=== PATIENT | female | born 1990 | race Caucasian/White ===

== ENCOUNTER 2017-07-04 10:31 | Inpatient (IN) | payer MEDICARE, MEDICAID ==
--- NOTE | 2017-07-04 11:01 | ED ---
General Adult HPI - General Chief complaint: Psychiatric Symptoms Stated complaint: mental health Time Seen by Provider: 07/04/17 10:40 Source: patient, RN notes reviewed Mode of arrival: ambulatory Limitations: no limitations - History of Present Illness Initial comments: 27-year-old female presents for evaluation of depression and suicidal thoughts. Patient was sent by her psychiatrist for possible admission. She has had ongoing thoughts of harming herself for some time over these have worsened recently. She has past medical history of depression and panic attacks. She has been admitted for psychiatric reasons approximately 10 years ago. She has no specific plan. She did some superficial cutting to her right upper extremity. No other suicide attempt. Patient is accompanied by her mother. - Related Data Home Medications Medication Instructions Recorded Confirmed Dextroamphetamine/Amphetamine 30 mg PO DAILY 07/04/17 07/04/17 [Adderall Xr] LORazepam [Ativan] 1 mg PO TID 07/04/17 07/04/17 OXcarbazepine [Trileptal] 300 mg PO BID 07/04/17 07/04/17 Allergies Allergy/AdvReac Type Severity Reaction Status Date / Time lamotrigine [From Lamictal] Allergy Unknown Verified 07/04/17 10:53 topiramate [From Topamax] Allergy Anaphylaxis Verified 07/04/17 10:53 Review of Systems ROS Statement: Those systems with pertinent positive or pertinent negative responses have been documented in the HPI. ROS Other: All systems not noted in ROS Statement are negative. Past Medical History Additional Past Medical History / Comment(s): stomach ulcer History of Any Multi-Drug Resistant Organisms: None Reported Past Surgical History: Tonsillectomy Additional Past Surgical History / Comment(s): endoscopy Past Psychological History: Anxiety, Depression, Panic Disorder Smoking Status: Current every day smoker Past Alcohol Use History: Occasional Past Drug Use History: Marijuana General Exam Limitations: no limitations General appearance: alert, in no apparent distress Head exam: Present: atraumatic, normocephalic Eye exam: Present: normal appearance, PERRL, EOMI ENT exam: Present: normal exam Neck exam: Present: normal inspection. Absent: tenderness, meningismus Respiratory exam: Present: normal lung sounds bilaterally. Absent: respiratory distress, wheezes Cardiovascular Exam: Present: regular rate, normal rhythm GI/Abdominal exam: Present: soft. Absent: distended, tenderness, guarding Extremities exam: Present: full ROM, other (Superficial abrasion to the dorsal surface of the right forearm, no laceration). Absent: tenderness Back exam: Present: normal inspection Neurological exam: Present: alert, oriented X3, CN II-XII intact. Absent: motor sensory deficit Psychiatric exam: Present: depressed, suicidal ideation Skin exam: Present: warm, dry. Absent: cyanosis, diaphoretic Course Vital Signs 07/04/17 10:35 Temperature 98.1 F Pulse Rate 113 H Respiratory 20 Rate Blood Pressure 126/89 O2 Sat by Pulse 100 Oximetry Medical Decision Making - Medical Decision Making 37-year-old female presenting with suicidal ideation or depression. She is evaluated by [facility] in the emergency department. They do recommend inpatient treatment. Patient signed herself in. - Lab Data Lab Results 07/04/17 07/04/17 Range/Units 11:00 11:00 Urine HCG, Qual Not Detected (Not Detectd) Urine Opiates Screen Not Detected (NotDetected) Ur Oxycodone Screen Not Detected (NotDetected) Urine Methadone Screen Not Detected (NotDetected) Ur Propoxyphene Screen Not Detected (NotDetected) Ur Barbiturates Screen Not Detected (NotDetected) U Tricyclic Antidepress Not Detected (NotDetected) Ur Phencyclidine Scrn Not Detected (NotDetected) Ur Amphetamines Screen Detected H (NotDetected) U Methamphetamines Scrn Not Detected (NotDetected) U Benzodiazepines Scrn Detected H (NotDetected) Urine Cocaine Screen Not Detected (NotDetected) U Marijuana (THC) Screen Detected H (NotDetected) Disposition Clinical Impression: Depression, Suicidal ideation Disposition: ADMITTED IP TO THIS [facility] Condition: Stable Referrals: Harjinder Mcdonald MD [Primary Care Provider] - 1-2 days Decision to Admit Reason: Admit from EC Decision Date: 07/04/17
[2017-07-04 11:22] LABS: Amphetamine Screen,Urine Detected (NotDetected); Barbiturate Screen,Urine Not Detected (NotDetected); Benzodiazepines Screen,Urine Detected (NotDetected); Cocaine Screen,Urine Not Detected (NotDetected); Methadone Screen, Urine Not Detected (NotDetected); Opiate Screen,Urine Not Detected (NotDetected); Oxycodone Screen, Urine Not Detected (NotDetected); Phencyclidine Screen,Urine Not Detected (NotDetected); Tricyclic Antidepressant,Urine Not Detected (NotDetected); Urn Cannabinoid Scrn Detected (NotDetected)
[2017-07-04 14:28] VITALS: BMI 30.9
[2017-07-04] MEDS ORDERED: ACETAMINOPHEN TAB 325 MG TAB PO PRN (15:23)
[2017-07-04] MEDS ORDERED: MAGNESIUM HYDROXIDE 2,400 MG/10 ML CUP PO PRN (15:23)
[2017-07-04] MEDS ORDERED: MAG HYDROX/AL HYDROX/SIMETH 30 ML CUP PO PRN (15:23)
[2017-07-04] MEDS: LORazepam 1 MG TAB PO SCH ×2 (15:37→20:24)
[2017-07-04] MEDS ORDERED: NICOTINE 21MG/24HR PATCH TRANSDERM SCH (16:15)
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
--- NOTE | 2017-07-04 19:11 | P.HPMEDMHU ---
History of Present Illness H&P Date: 07/04/17 Chief Complaint: anxiety Patient is a 27-year-old female with a past medical history of gastric ulcer, ADD, and borderline personality disorder who presented to the ER with increased anxiety and suicidal ideation. She was then admitted to the mental health unit. We are asked evaluate her for abdominal pain and vomiting. Patient seen and examined. She complains of vomiting first morning on waking every day. She also complains of stomach pain. She states that she was told she had a stomach ulcer secondary to stress about 3 years ago. She has been taking Prilosec but she tends to vomited up and doesn't absorb it. She also complains of increased burning in her chest at night associated with waking up with shortness of breath and wheezing. She states that when she wakes up she is coughing and producing sputum that is consistent with clear white or bile colored. She also states that when she throws up in the morning it looks like acid. She feels that it is likely due to stress. She is also been having intermittent tingling in the center of her back. She is not having any back pain or falls. She's not have any associated weakness. She has not been sleeping and has had a poor appetite. She is been feeling depressed and suicidal realizes she would not commit suicide due to having a 2-year-old son. She states she did not want to continue asking for her parents help to care for her son and therefore presented to the emergency department. She has no other complaints currently. She has recently increased her tobacco use. Review of Systems Pertinent positives and negatives as per HPI, remainder of 12 point review of systems is negative. Past Medical History Additional Past Medical History / Comment(s): stomach ulcer History of Any Multi-Drug Resistant Organisms: None Reported Past Surgical History: Tonsillectomy Additional Past Surgical History / Comment(s): EGD Smoking Status: Current every day smoker Past Alcohol Use History: Rare Past Drug Use History: Marijuana Additional Drug Use History / Comment(s): Lives alone with her son, not currently working, independent in activities of daily living - Past Family History Mother Additional Family Medical History / Comment(s): Hypertension, hyperparathyroidism, posttraumatic stress disorder Father Additional Family Medical History / Comment(s): being evaluated for stroke and possible palpitations Medications and Allergies Home Medications Medication Instructions Recorded Confirmed Type Dextroamphetamine/Amphetamine 30 mg PO DAILY 07/04/17 07/04/17 History [Adderall Xr] LORazepam [Ativan] 1 mg PO TID 07/04/17 07/04/17 History OXcarbazepine [Trileptal] 300 mg PO BID 07/04/17 07/04/17 History Allergies Allergy/AdvReac Type Severity Reaction Status Date / Time lamotrigine [From Lamictal] Allergy Unknown Verified 07/04/17 14:47 topiramate [From Topamax] Allergy Anaphylaxis Verified 07/04/17 14:47 Physical Exam Osteopathic Statement: *. No significant issues noted on an osteopathic structural exam other than those noted in the History and Physical/Consult. Vitals: Vital Signs Temp Pulse Pulse Resp BP BP Pulse Ox 07/04/17 15:37 93 18 139/85 07/04/17 14:18 98.2 F 103 H 20 129/82 07/04/17 13:28 98.2 F 103 H 20 129/82 07/04/17 10:35 98.1 F 113 H 20 126/89 100 Intake and Output 07/04/17 07/04/17 07/04/17 06:59 14:59 22:59 Other: Weight 81.64 kg Patient Weight 07/05/17 06:59 Weight 81.64 kg General: non toxic, no distress, appears at stated age, normal weight Derm: no unusual rashes/lesions no unusual ecchymoses, warm, dry Head: atraumatic, normocephalic, symmetric Eyes: EOMI, no lid lag, anicteric sclera, pupils equal round reactive to light ENT: Nose and ears atraumatic, no thrush, no pharyngeal erythema Neck: No thyromegaly, no cervical lymphadenopathy, trachea midline, supple Mouth: no lip lesion, mucus membranes moist Cardiovascular: S1S2 reg, no murmur, positive posterior tibial pulse bilateral, no edema, capillary refill less than 2 seconds Lungs: CTA bilateral, no rhonchi, no rales , no accessory muscle use Abdominal: soft, nontender to palpation, no guarding, no appreciable organomegaly, normal bowel sounds Ext: no gross muscle atrophy, muscle strength 5 out of 5 in all 4 extremities grossly, no contractures, Neuro: CN II-XI grossly intact, light touch intact all 4 extremities, finger to nose within normal limits, Psych: Alert, oriented, pressured speech, anxious appearing Cranial Nerve Examination - Cranial Nerves Cranial Nerve II- Optic: Intact Cranial Nerve III- Oculomotor: Intact Cranial Nerve IV- Trochlear: Intact Cranial Nerve V- Trigeminal: Intact Cranial Nerve - Abducens: Intact Cranial Nerve VII- Facial: Intact Cranial Nerve VIII- Auditory: Intact Cranial Nerve IX- Glossopharyngeal: Intact Cranial Nerve X- Vagus: Intact Cranial Nerve XI- Accessory: Intact Cranial Nerve XII- Hypoglossal: Intact Results Labs: Abnormal Lab Results - Last 24 Hours (Table) 07/04/17 Range/Units 11:00 Ur Amphetamines Screen Detected H (NotDetected) U Benzodiazepines Scrn Detected H (NotDetected) U Marijuana (THC) Screen Detected H (NotDetected) Thrombosis Risk Factor Assmnt - DVT/VTE Prophylaxis DVT/VTE Prophylaxis: Low risk, early ambulation encouraged - Choose All That Apply Any of the Below Risk Factors Present?: No Other Risk Factors: No Other congenital or acquired thrombophilia - If yes, enter type in comment: No Thrombosis Risk Factor Assessment Level: Very Low Risk Assessment and Plan Assessment: Acid reflux -Suspect this is why her shortness of breath occurs at night associated with wheezing and increased acid production -Change from omeprazole to Protonix twice daily -Tums before bed - Check back in 3-4 days for improvement, if she is discharged before then she can follow with her primary care physician to ensure improvement Borderline personality disorder with suicidal ideation -Management as per psychiatry team -Tobacco abuse -Cessation -Nicotine replacement Check baseline CBC, CMP, TSH, and hemoglobin A1c
[2017-07-04] MEDS: CALCIUM CARBONATE 500 MG CHEWABLE PO SCH (20:23)
[2017-07-04] MEDS: OXcarbazepine 300 MG TAB PO SCH (20:23)
[2017-07-04] MEDS: traZODone HCL 50 MG TAB PO SCH (20:23)
[2017-07-04] MEDS: NICOTINE POLACRILEX 2 MG GUM BUCCAL PRN (20:35)
[2017-07-05 06:43] VITALS: RESP 16
[2017-07-05 08:12] LABS: Basophils % (A) 0 %; Eosinophils # (A) 0.1 k/uL (0-0.7); Eosinophils % (A) 1 %; HCT 39.9 % (34.0-46.0); HGB 13.1 gm/dL (11.4-16.0); Lymphocytes # (A) 2.1 k/uL (1.0-4.8); Lymphocytes % (A) 25 %; MCH 28.8 pg (25.0-35.0); MCHC 32.9 g/dL (31.0-37.0); MCV 87.6 fL (80.0-100.0); Mean Platelet Volume 7.7; Monocytes # (A) 0.5 k/uL (0-1.0); Monocytes % (A) 5 %; Neutrophils # (A) 5.7 k/uL (1.3-7.7); Neutrophils % (A) 66 %; Platelet Count 187 k/uL (150-450); RBC 4.55 m/uL (3.80-5.40); RDW 13.1 % (11.5-15.5); WBC 8.6 k/uL (3.8-10.6)
[2017-07-05] MEDS: PANTOPRAZOLE 40 MG TABLET PO SCH ×2 (08:33→16:58)
[2017-07-05] MEDS: ESCITALOPRAM 10 MG TAB PO SCH (08:33)
[2017-07-05] MEDS: OXcarbazepine 300 MG TAB PO SCH ×2 (08:33→20:31)
[2017-07-05] MEDS: LORazepam 1 MG TAB PO SCH ×3 (08:34→20:31)
[2017-07-05 08:48] LABS: ALT 32 U/L (9-52); AST 14 U/L (14-36); Alkaline Phosphatase 58 U/L (38-126); Anion Gap 10 mmol/L; Blood Urea Nitrogen 12 mg/dL (7-17); Calcium 9.7 mg/dL (8.4-10.2); Carbon Dioxide 23 mmol/L (22-30); Chloride 109 mmol/L (98-107); Glucose 93 mg/dL (74-99); Potassium 4.4 mmol/L (3.5-5.1); Sodium 142 mmol/L (137-145); Total Bilirubin 0.3 mg/dL (0.2-1.3); Total Protein 6.8 g/dL (6.3-8.2)
[2017-07-05] MEDS: NICOTINE POLACRILEX 2 MG GUM BUCCAL PRN ×3 (08:57→20:43)
[2017-07-05 09:41] LABS: T4, Free (Free Thyroxine) 1.35 ng/dL (0.78-2.19)
--- NOTE | 2017-07-05 13:52 | P.PN ---
Progress Note - Text Progress Note Date: 07/05/17 Interval History: Patient is a 27-year-old female who was seen today and she reports that she slept well last evening. She states that she is not been as tearful today and is not feeling as irritable. She reports that she feels much better now that she is slept. Patient declined her Ativan this morning stating that she did not have a need for it. Patient reports no further suicidal ideation. Patient reports no side effects from the medications at this time Mental Status: Appearance/Attitude: Patient is appropriately dressed, makes good eye contact and is cooperative. Behavior: Patient does not exhibit any psychomotor agitation or retardation. Speech/Language: Patient's speech is spontaneous, normal volume and rhythm and she is coherent. Thought Process: Patient is goal-directed, no evidence of loose associations or flight of ideas. Thought Content: Patient denies auditory or visual hallucinations and no delusions or paranoid ideation were elicited. Patient states that she slept well last evening and is feeling much better today, much less irritable and states she has not had any crying spells. Patient states that she is eating well. She reports that she feels less overwhelmed and stressed. Suicidal/Homicidal Ideation: Patient denies any current suicidal or homicidal ideation. Sensorium/Cognition: Patient is alert and oriented to person, place, and time and her recent and remote memory are grossly intact. Mood/Affect: Patient's mood remains depressed and her affect is slightly blunted Insight/Judgment: Patient's insight and judgment are intact Assessment: Patient reports that she slept well with the trazodone and had no reported side effects. She states she is feeling much less irritable and less overwhelmed at this morning and is not having any suicidal ideation. She reports her crying spells have also decreased. Patient states that she has been attending groups and activities and feels better able to cope with things. Plan: Patient will continue on Trileptal 3 mg twice a day, Lexapro 10 mg in the morning and trazodone 50 mg at bedtime. Patient and I again discussed the need for her to take her Ativan as scheduled she has been taking 3 mg a day and has been on Ativan for quite some time. Will decrease patient's Ativan to 1 mg twice a day tomorrow and continue to slowly decrease her dose. Patient continues to require hospitalization to further stabilize her mood but should patient continue to improve with consider discharge in the next several days.
[2017-07-05 16:52] LABS: Hemoglobin A1C 5.1 % (4.0-6.0)
[2017-07-05] MEDS: CALCIUM CARBONATE 500 MG CHEWABLE PO SCH (20:31)
[2017-07-05] MEDS: traZODone HCL 50 MG TAB PO SCH (20:31)
[2017-07-06] MEDS: OXcarbazepine 300 MG TAB PO SCH ×2 (08:13→20:34)
[2017-07-06] MEDS: ESCITALOPRAM 10 MG TAB PO SCH (08:13)
[2017-07-06] MEDS: PANTOPRAZOLE 40 MG TABLET PO SCH ×2 (08:13→17:48)
[2017-07-06] MEDS: LORazepam 1 MG TAB PO SCH ×2 (08:14→20:34)
[2017-07-06] MEDS: NICOTINE POLACRILEX 2 MG GUM BUCCAL PRN ×2 (09:24→18:25)
--- NOTE | 2017-07-06 10:03 | P.PN ---
Progress Note - Text Progress Note Date: 07/06/17 Interval History: Patient is a 27-year-old female who was seen today and she reports that she continues to sleep well and feels much better, more rested and not as stressed. She states that she is feeling less overwhelmed and has no suicidal thoughts. She states she is not feeling as hopeless as she did on admission. She reports to speaking with her mother who took her son to his order picker/assembler and her mother was given a list of mother baby support groups. Patient reports that she is not having any side effects from the medication and feels that her mood has stabilized. She states she is not feeling as irritable. Mental Status: Appearance/Attitude: Patient was appropriately dressed, making good eye contact and was cooperative Behavior: Patient did not exhibit any psychomotor agitation or retardation. Speech/Language: Patient's speech was spontaneous and of normal volume and rhythm and she was coherent. Thought Process: Patient was goal-directed there is no evidence of loose associations or flight of ideas. Thought Content: Patient denied any auditory or visual hallucinations and no delusions or paranoid ideation were elicited. Patient reported that she has been sleeping well at night and feeling much less overwhelmed. She states she is feeling rested and has energy to do things. Patient is not feeling as irritable. Suicidal/Homicidal Ideation: Patient denied any current suicidal or homicidal ideation Sensorium/Cognition: Patient is alert and oriented to person, place, and time and her recent and remote memory are grossly intact. Mood/Affect: Patient's mood is less irritable, less depressed and her affect is appropriate Insight/Judgment: Patient's insight and judgment are intact Assessment: Patient reports that she continues to sleep well and feels rested in the morning, stating that she is no longer feeling as irritable or as overwhelmed. Patient states that she is eager to return home and reports that her mother and son are doing well. She reports no suicidal thoughts and is no longer feeling hopeless. Patient's TSH was low however repeat T4 is within normal limits. Patient has been attending groups and activities. Plan: Patient and I discussed decreasing her Ativan to 1 mg twice a day, with a plan to continue titration to get her off of the benzodiazepines. Patient continues on Trileptal 3 mg twice a day, Lexapro 10 mg and trazodone 50 mg at bedtime and reports no side effects. Patient and I also discussed the list of mother/baby groups that were given to her mother by the order picker/assembler and I encouraged her to look into this on discharge. Patient is more hopeful that she can meet other mothers in the area, improve her support group. Patient and I discussed discharge tomorrow and she was agreeable with this plan.
[2017-07-06] MEDS: CALCIUM CARBONATE 500 MG CHEWABLE PO SCH (20:32)
[2017-07-06] MEDS: traZODone HCL 50 MG TAB PO SCH (20:34)
[2017-07-07 06:42] VITALS: BP 115/62; PULSE 77; TEMP 98.6
[2017-07-07] MEDS: OXcarbazepine 300 MG TAB PO SCH (08:02)
[2017-07-07] MEDS: ESCITALOPRAM 10 MG TAB PO SCH (08:02)
[2017-07-07] MEDS: LORazepam 1 MG TAB PO SCH (08:02)
[2017-07-07] MEDS: PANTOPRAZOLE 40 MG TABLET PO SCH (08:02)
[2017-07-07] MEDS ORDERED: LORazepam 0.5 MG TAB PO SCH (09:15)
--- NOTE | 2017-07-07 09:39 | P.DS ---
Providers Date of admission: 07/04/17 13:06 Expected date of discharge: 07/07/17 Attending physician: Mikayla Figueroa MD Consults: 07/04/17 15:23 Consult Physician Routine Consulting Provider: Georgina Gilliland Consult Reason/Comments: H&P Do you want consulting provider notified?: Yes Primary care physician: [facility] Course: Discharge Diagnosis: Bipolar type II disorder, current episode depressed; history of ADHD; anxiety disorder unspecified Reason for Admission: Patient is a 27-year-old female who presented to the emergency room stating that she doesn't want to hurt herself and she doesn't want to get angry with her son and snap at him. Patient states that she has been treated for anxiety and bipolar disorder for a number of years as well as ADHD. She is followed by Dr. Yates and was begun on Trileptal 6 months ago for her anger issues. Patient is also taking Adderall 30 mg extended release every morning as well as Ativan 1 mg 3 times a day over the patient reports that she takes all 3 mg at bedtime to assist with her sleep. Patient states that she has been treated since the age of 7 for psychiatric problems. Patient states that she was diagnosed with ADHD at that time and placed on Ritalin and has been on and off it over the years and it was restarted in 2009 and she has been on Adderall extended release since that time. Patient states that she has been on multiple medications for a diagnosis of bipolar disorder made when she was in the third grade. She was on Topamax prior to the Trileptal for 3 months and states that she had every side effect imaginable and it was discontinued. Patient states that she's been on lithium in the past, Seroquel in the past and states that lithium caused weight gain and she slept too much on Seroquel. Patient states that she has episodes where she talks too much, has more impulsive behavior of stealing, increased interest in sex and seeking out men, buying things that she does not need that she's unable to endorse the need for decreased sleep with increased energy. Patient states that she does much of this to get attention. Patient states that she currently is feeling depressed and has been thinking about suicide for the last year but especially over the last month, she describes passive suicidal ideation where she thinks if she was it would be okay but states that she doesn't want to because who would take care of eie-2-kmln-old son. Patient states she has been having crying spells and has not been sleeping and feels exhausted and tired during the day. She states she is increasingly irritable and feels overwhelmed with the care of her son because she is so tired. She states that she and her 2-1/2-year-old son live alone and she is not working outside of the house and once a month her mother will watch her son so that the patient can sleep. Patient states she has been taking Adderall, Trileptal and Ativan. Patient states she has been on multiple medications in the past with little benefit states that she is also been on different combinations with what she reports little benefit and was unable to tell me what was the most effective medication for her in the past. Patient does not endorse any psychotic symptomatology, does describe feeling anxious for which she states she was using Ativan but was taking it all at night to help her sleep. Patient also has been taking Adderall states that it helps her focus she's been on it since 2009. Mental status on admission: Appearance/Attitude: Patient is dressed in a hospital gown, was tearful throughout the bulk of the interview made made good eye contact and was cooperative Behavior: Patient did not exhibit any psychomotor agitation or retardation. Speech/Language: Patient's speech was spontaneous and of normal volume and rhythm and she was coherent. Thought Process: Patient was goal-directed there is no evidence of circumstantial or tangential thought and no loose associations or flight of ideas. Thought Content: Patient denied any auditory or visual hallucinations and no paranoid or delusional ideation was elicited. Patient reports that she is feeling depressed and tired with little energy to do things. Patient states she also is easily irritated and becomes angry easily. She states that she does not want to get angry and snappy a 2-1/2-year-old son who she states is being evaluated for ADHD. Patient states that she is not sleeping at night for more than 4 hours and those 4 hours are interrupted. She states this is not due to her son. Patient states she has no energy to do things. Suicidal/Homicidal Ideation: Patient states that she has passive suicidal thoughts that if something happened to her and she she wouldn't care but then stated she has no plans or intent to act and does not want to because she wonders who would care for her son. Patient is concerned that she'll get angry and snappy at her son but states that she has never done so. Patient denied any current homicidal ideation Sensorium/Cognition: Patient is alert and oriented to person, place, and time and her recent and remote memory were grossly intact. Mood/Affect: Patient's mood is depressed and tearful and her affect is appropriate to her mood Insight/Judgment: Patient's insight and judgment are fair Hospital Course: Patient was admitted on a voluntary basis, routine observation and group and activity therapy were ordered. Patient was also ordered routine laboratory studies and a medical consultation was requested. Patient was continued on Trileptal 300 mg twice a day, Lexapro 10 mg in the morning was begun to target her depressive symptoms. Patient had been using Ativan 3 mg at bedtime for sleep and she was continued on Ativan 1 mg 3 times a day to prevent withdrawal and this was slowly decreased over the course of her hospital stay. Patient was placed on Desyrel 50 mg at bedtime to target her sleep. Patient reported improvement and she was able to sleep with the Desyrel and felt more rested, less overwhelmed and better able to cope. Patient reported that she was no longer feeling depressed and irritable and reported no suicidal thoughts. Patient reported no side effects from the medication but reported taking the Ativan during the day was making her sleepy so her dose was further decreased to Ativan 0.5 mg twice a day at the time of her discharge. Patient was attending and participating in groups and activities. She reported in phone call with the father of her son went well, stating that she remained calm and did not call him names that she has done in the past. Patient also reports that her mother was given a list of mother/baby groups by the sand cutter and the patient is going to follow-up on this. Patient felt she was ready for discharge and had no side effects from the medications. Patient's TSH was low but a T4 was within normal limits no further studies were ordered at this time patient will follow up with her primary care physician Allergies lamotrigine [From Lamictal] Allergy (Verified 07/04/17 14:47) Unknown topiramate [From Topamax] Allergy (Verified 07/04/17 14:47) Anaphylaxis Laboratory Last Values WBC 8.6 k/uL (3.8-10.6) 07/05/17 07:44 RBC 4.55 m/uL (3.80-5.40) 07/05/17 07:44 Hgb 13.1 gm/dL (11.4-16.0) 07/05/17 07:44 Hct 39.9 % (34.0-46.0) 07/05/17 07:44 MCV 87.6 fL (80.0-100.0) 07/05/17 07:44 MCH 28.8 pg (25.0-35.0) 07/05/17 07:44 MCHC 32.9 g/dL (31.0-37.0) 07/05/17 07:44 RDW 13.1 % (11.5-15.5) 07/05/17 07:44 Plt Count 187 k/uL (150-450) 07/05/17 07:44 Neutrophils % 66 % 07/05/17 07:44 Lymphocytes % 25 % 07/05/17 07:44 Monocytes % 5 % 07/05/17 07:44 Eosinophils % 1 % 07/05/17 07:44 Basophils % 0 % 07/05/17 07:44 Neutrophils # 5.7 k/uL (1.3-7.7) 07/05/17 07:44 Lymphocytes # 2.1 k/uL (1.0-4.8) 07/05/17 07:44 Monocytes # 0.5 k/uL (0-1.0) 07/05/17 07:44 Eosinophils # 0.1 k/uL (0-0.7) 07/05/17 07:44 Basophils # 0.0 k/uL (0-0.2) 07/05/17 07:44 Sodium 142 mmol/L (137-145) 07/05/17 07:44 Potassium 4.4 mmol/L (3.5-5.1) 07/05/17 07:44 Chloride 109 mmol/L (98-107) H 07/05/17 07:44 Carbon Dioxide 23 mmol/L (22-30) 07/05/17 07:44 Anion Gap 10 mmol/L 07/05/17 07:44 BUN 12 mg/dL (7-17) 07/05/17 07:44 Creatinine 0.70 mg/dL (0.52-1.04) 07/05/17 07:44 Est GFR (MDRD) Af Amer >60 (>60 ml/min/1.73 sqM) 07/05/17 07:44 Est GFR (MDRD) Non-Af >60 (>60 ml/min/1.73 sqM) 07/05/17 07:44 Glucose 93 mg/dL (74-99) 07/05/17 07:[address] Glu mg/dL 100 07/05/17 07:44 Hemoglobin A1c 5.1 % (4.0-6.0) 07/05/17 07:44 Calcium 9.7 mg/dL (8.4-10.2) 07/05/17 07:44 Total Bilirubin 0.3 mg/dL (0.2-1.3) 07/05/17 07:44 AST 14 U/L (14-36) 07/05/17 07:44 ALT 32 U/L (9-52) 07/05/17 07:44 Alkaline Phosphatase 58 U/L (38-126) 07/05/17 07:44 Total Protein 6.8 g/dL (6.3-8.2) 07/05/17 07:44 Albumin 4.0 g/dL (3.5-5.0) 07/05/17 07:44 TSH 0.267 mIU/L (0.465-4.680) L 07/05/17 07:44 Free T4 1.35 ng/dL (0.78-2.19) 07/05/17 07:44 Urine HCG, Qual Not Detected (Not Detectd) 07/04/17 11:00 Urine Opiates Screen Not Detected (NotDetected) 07/04/17 11:00 Ur Oxycodone Screen Not Detected (NotDetected) 07/04/17 11:00 Urine Methadone Screen Not Detected (NotDetected) 07/04/17 11:00 Ur Propoxyphene Screen Not Detected (NotDetected) 07/04/17 11:00 Ur Barbiturates Screen Not Detected (NotDetected) 07/04/17 11:00 U Tricyclic Antidepress Not Detected (NotDetected) 07/04/17 11:00 Ur Phencyclidine Scrn Not Detected (NotDetected) 07/04/17 11:00 Ur Amphetamines Screen Detected (NotDetected) H 07/04/17 11:00 U Methamphetamines Scrn Not Detected (NotDetected) 07/04/17 11:00 U Benzodiazepines Scrn Detected (NotDetected) H 07/04/17 11:00 Urine Cocaine Screen Not Detected (NotDetected) 07/04/17 11:00 U Marijuana (THC) Screen Detected (NotDetected) H 07/04/17 11:00 Discharge Mental Status: Appearance/Attitude: Patient is dressed in a hospital gown, makes good eye contact and is cooperative. Behavior: Patient does not exhibit any psychomotor agitation or retardation. Speech/Language: Patient's speech is spontaneous and of normal volume and rhythm and she is coherent. Thought Process: Patient is goal-directed there is no evidence of circumstantial or tangential thought and no loose associations or flight of ideas Thought Content: Patient denies any auditory or visual hallucinations and no paranoid or delusional ideation was elicited. Patient reports she is no longer feeling irritable or easily angered and states that due to [place] improving she feels rested and more motivated. Patient states her appetite is good. She reports that she feels better able to cope and no longer feels concerned that she will snap and get angry at her son. Suicidal/Homicidal Ideation: Patient denies any current suicidal or homicidal ideation. Sensorium/Cognition: Patient is alert and oriented to person, place, and time and her recent and remote memory were grossly intact. Mood/Affect: patient's mood is pleasant, not irritable or angry and her affect is appropriate Insight/Judgment: patient's insight and judgment are intact. Risk Assessment: patient's risk for self harm is low Discharge Plan: patient will return home to live with her son, she will continue on Trileptal 300 mg twice a day, Desyrel 50 mg at bedtime and Lexapro 10 mg in the morning and will continue on Ativan 0.5 mg twice a day for 4 days then decrease to Ativan 0.5 mg once a day for 4 days and then discontinue Ativan. Patient will also continue on Nicorette gum and proton ask which word begun here in the hospital. Patient will be given a prescription for Lexapro, Desyrel, Protonix in the Nicorette gum. Patient will follow-up with Dr. Yates on July 11 and at [facility] on July 12 for an intake appointment. Patient will also follow-up with her primary care physician regarding the Protonix. Patient was encouraged to follow-up with the referrals for mother/baby groups to increase her support system. Patient was encouraged to follow-up with appointments and be compliant with her medication. Patient will restart her Adderall once she has returned home. Patient was encouraged to avoid any marijuana. Patient Condition at Discharge: Stable Plan - Discharge Summary Discharge Rx Participant: No New Discharge Prescriptions: New Calcium Carbonate [Tums] 1,000 mg PO HS chew Escitalopram [Lexapro] 10 mg PO DAILY #14 tab Nicotine Polacrilex [Nicorette] 2 mg BUCCAL Q2HR PRN #20 gum PRN Reason: Nicotine Cravings Pantoprazole [Protonix] 40 mg PO AC-BID #28 tablet. traZODone HCL [Desyrel] 50 mg PO HS #14 tab Continue OXcarbazepine [Trileptal] 300 mg PO BID Dextroamphetamine/Amphetamine [Adderall Xr] 30 mg PO DAILY Changed LORazepam [Ativan] 0.5 mg PO DIRECTED #0 Discharge Medication List Dextroamphetamine/Amphetamine [Adderall Xr] 30 mg PO DAILY 07/04/17 [History] OXcarbazepine [Trileptal] 300 mg PO BID 07/04/17 [History] Calcium Carbonate [Tums] 1,000 mg PO HS chew 07/07/17 [Rx] Escitalopram [Lexapro] 10 mg PO DAILY #14 tab 07/07/17 [Rx] LORazepam [Ativan] 0.5 mg PO DIRECTED #0 07/07/17 [Rx] Nicotine Polacrilex [Nicorette] 2 mg BUCCAL Q2HR PRN #20 gum 07/07/17 [Rx] Pantoprazole [Protonix] 40 mg PO AC-BID #28 tablet. 07/07/17 [Rx] traZODone HCL [Desyrel] 50 mg PO HS #14 tab 07/07/17 [Rx] Follow up Appointment(s)/Referral(s): dr. guerita [Other] - 07/11/17 3:00 pm (Intake 07/11/17 at 3:00pm) [facility] [Outside] - 07/12/17 1:00 pm (Intake 07/12/17 at 1:00 pm with Dorota) Harjinder Mcdonald MD [Primary Care Provider] - 1-2 days Discharge Disposition: HOME SELF-CARE
[2017-07-07] MEDS: NICOTINE POLACRILEX 2 MG GUM BUCCAL PRN (09:44)
== END 2017-07-07 11:30 | disposition home or self-care (01) | DRG 885 ==
LOC: EC 10:31 → 3MHU 13:06
PROVIDERS: ADMIT Psychiatry & Neurology Psychiatry; ATTEND Psychiatry & Neurology Psychiatry
DX: F31.81 Bipolar II disorder (principal); R45.851 Suicidal ideations; F17.200 Nicotine dependence, unspecified, uncomplicated; F41.0 Panic disorder [episodic paroxysmal anxiety]; F90.9 Attention-deficit hyperactivity disorder, unspecified type; Z79.899 Other long term (current) drug therapy; Z81.8 Family history of other mental and behavioral disorders; Z87.11 Personal history of peptic ulcer disease
CPT/HCPCS: 80053; 80306; 81025; 82075; 83036; 84439; 84443; 85025; 99285

== ENCOUNTER 2017-12-05 11:31 | Emergency (ER) | payer MEDICAID, MEDICARE ==
[2017-12-05] MEDS ORDERED: KETOROLAC 30 MG/ML 1 ML VIAL IVP STA (12:52)
--- NOTE | 2017-12-05 12:58 | ED ---
General Adult HPI - General Chief complaint: Recheck/Abnormal Lab/Rx Stated complaint: PAIN ALL OVER, POSS THRYROID PROBLEM Time Seen by Provider: 12/05/17 12:19 Source: patient, RN notes reviewed Mode of arrival: wheelchair Limitations: no limitations - History of Present Illness Initial comments: Patient 27-year-old female presenting to the emergency room today with a chief complaint of feeling very fatigued and having pain. She states symptoms started a year ago. She states she has had workup and is waiting to see life insurance underwriter about thyroid. Patient was told that thyroid levels were low. Patient states that she seems like symptoms are getting worse as she feels like it takes all of her energy just left upper arms. Patient denies any sudden changes in these symptoms. She denies any other complaints currently. Patient denies any recent fever, chills, shortness of breath, chest pain, back pain, abdominal pain, nausea or vomiting, dysuria or hematuria, constipation or diarrhea, headaches or visual changes, or any other complaints. - Related Data Home Medications Medication Instructions Recorded Confirmed Dextroamphetamine/Amphetamine 30 mg PO DAILY 07/04/17 12/05/17 [Adderall Xr] Medroxyprogesterone Acetate 150 mg IM Q90D 12/05/17 12/05/17 [Depo-Provera] OXcarbazepine [Trileptal] 150 mg PO BID 12/05/17 12/05/17 traZODone HCL [Trazodone HCl] 100 mg PO HS 12/05/17 12/05/17 Previous Rx's Medication Instructions Recorded Escitalopram [Lexapro] 10 mg PO DAILY #14 tab 07/07/17 Allergies Allergy/AdvReac Type Severity Reaction Status Date / Time lamotrigine [From Lamictal] Allergy Unknown Verified 12/05/17 12:40 topiramate [From Topamax] Allergy Anaphylaxis Verified 12/05/17 12:40 Review of Systems ROS Statement: Those systems with pertinent positive or pertinent negative responses have been documented in the HPI. ROS Other: All systems not noted in ROS Statement are negative. Past Medical History Additional Past Medical History / Comment(s): stomach ulcer History of Any Multi-Drug Resistant Organisms: None Reported Past Surgical History: Tonsillectomy Additional Past Surgical History / Comment(s): EGD Past Psychological History: ADD/ADHD, Anxiety, Bipolar, Depression, Panic Disorder Smoking Status: Current every day smoker Past Alcohol Use History: Rare Past Drug Use History: Marijuana - Past Family History Mother Additional Family Medical History / Comment(s): Hypertension, hyperparathyroidism, posttraumatic stress disorder Father Additional Family Medical History / Comment(s): being evaluated for stroke and possible palpitations General Exam - General Exam Comments Initial Comments: General: The patient is awake and alert, in no distress, and does not appear acutely ill. Eye: Pupils are equal, round and reactive to light, extra-ocular movements are intact. No nystagmus. There is normal conjunctiva bilaterally. No signs of icterus. Ears, nose, mouth and throat: There are moist mucous membranes and no oral lesions. Neck: The neck is supple, there is no tenderness or JVD. Cardiovascular: There is a regular rate and rhythm. No murmur, rub or gallop is appreciated. Respiratory: Lungs are clear to auscultation, respirations are non-labored, breath sounds are equal. No wheezes, stridor, rales, or rhonchi. Gastrointestinal: Soft, non-distended, non-tender abdomen without masses or organomegaly noted. There is no rebound or guarding present. No CVA tenderness. Bowel sounds are unremarkable. Musculoskeletal: Normal ROM, no tenderness. Strength 5/5. Sensation intact. Pulses equal bilaterally 2+. Neurological: A&O x 3. CN II-XII intact, There are no obvious motor or sensory deficits. Coordination appears grossly intact. Speech is normal. Skin: Skin is warm and dry and no rashes or lesions are noted. Psychiatric: Cooperative, appropriate mood & affect, normal judgment. Limitations: no limitations Course Vital Signs 12/05/17 12/05/17 11:50 14:12 Temperature 98.4 F 98.7 F Pulse Rate 85 71 Respiratory 20 18 Rate Blood Pressure 111/77 120/68 O2 Sat by Pulse 98 100 Oximetry Medical Decision Making - Medical Decision Making Patient's labs have been reviewed. TSH is low. Results were discussed with patient. She does have an appointment with her life insurance underwriter later in the month. Patient is advised to continue to follow-up. Advised return for any other concerns. - Lab Data Result diagrams: 12/05/17 12:49 12/05/17 12:49 Lab Results 12/05/17 12/05/17 12/05/17 Range/Units 12:49 12:49 12:49 WBC 8.4 (3.8-10.6) k/uL RBC 4.67 (3.80-5.40) m/uL Hgb 13.1 (11.4-16.0) gm/dL Hct 39.9 (34.0-46.0) % MCV 85.6 (80.0-100.0) fL MCH 28.2 (25.0-35.0) pg MCHC 32.9 (31.0-37.0) g/dL RDW 13.3 (11.5-15.5) % Plt Count 199 (150-450) k/uL Neutrophils % 62 % Lymphocytes % 30 % Monocytes % 5 % Eosinophils % 1 % Basophils % 0 % Neutrophils # 5.2 (1.3-7.7) k/uL Lymphocytes # 2.5 (1.0-4.8) k/uL Monocytes # 0.4 (0-1.0) k/uL Eosinophils # 0.1 (0-0.7) k/uL Basophils # 0.0 (0-0.2) k/uL Sodium 140 (137-145) mmol/L Potassium 4.1 (3.5-5.1) mmol/L Chloride 109 H (98-107) mmol/L Carbon Dioxide 24 (22-30) mmol/L Anion Gap 7 mmol/L BUN 16 (7-17) mg/dL Creatinine 0.70 (0.52-1.04) mg/dL Est GFR (CKD-EPI)AfAm >90 (>60 ml/min/1.73 sqM) Est GFR (CKD-EPI)NonAf >90 (>60 ml/min/1.73 sqM) Glucose 86 (74-99) mg/dL Calcium 9.5 (8.4-10.2) mg/dL Total Bilirubin 0.1 L (0.2-1.3) mg/dL AST 16 (14-36) U/L ALT 19 (9-52) U/L Alkaline Phosphatase 54 (38-126) U/L Total Protein 6.9 (6.3-8.2) g/dL Albumin 4.2 (3.5-5.0) g/dL TSH 0.252 L (0.465-4.680) mIU/L Urine Color Urine Appearance (Clear) Urine pH (5.0-8.0) Ur Specific [place] (1.001-1.035) Urine Protein (Negative) Urine Glucose (UA) (Negative) Urine Ketones (Negative) Urine Blood (Negative) Urine Nitrite (Negative) Urine Bilirubin (Negative) Urine Urobilinogen (<2.0) mg/dL Ur Leukocyte Esterase (Negative) Urine WBC (0-5) /hpf Amorphous Sediment (None) /hpf Urine HCG, Qual Not Detected (Not Detectd) 12/05/17 Range/Units 12:49 WBC (3.8-10.6) k/uL RBC (3.80-5.40) m/uL Hgb (11.4-16.0) gm/dL Hct (34.0-46.0) % MCV (80.0-100.0) fL MCH (25.0-35.0) pg MCHC (31.0-37.0) g/dL RDW (11.5-15.5) % Plt Count (150-450) k/uL Neutrophils % % Lymphocytes % % Monocytes % % Eosinophils % % Basophils % % Neutrophils # (1.3-7.7) k/uL Lymphocytes # (1.0-4.8) k/uL Monocytes # (0-1.0) k/uL Eosinophils # (0-0.7) k/uL Basophils # (0-0.2) k/uL Sodium (137-145) mmol/L Potassium (3.5-5.1) mmol/L Chloride (98-107) mmol/L Carbon Dioxide (22-30) mmol/L Anion Gap mmol/L BUN (7-17) mg/dL Creatinine (0.52-1.04) mg/dL Est GFR (CKD-EPI)AfAm (>60 ml/min/1.73 sqM) Est GFR (CKD-EPI)NonAf (>60 ml/min/1.73 sqM) Glucose (74-99) mg/dL Calcium (8.4-10.2) mg/dL Total Bilirubin (0.2-1.3) mg/dL AST (14-36) U/L ALT (9-52) U/L Alkaline Phosphatase (38-126) U/L Total Protein (6.3-8.2) g/dL Albumin (3.5-5.0) g/dL TSH (0.465-4.680) mIU/L Urine Color Yellow Urine Appearance Turbid H (Clear) Urine pH 7.5 (5.0-8.0) Ur Specific [place] 1.019 (1.001-1.035) Urine Protein Negative (Negative) Urine Glucose (UA) Negative (Negative) Urine Ketones Negative (Negative) Urine Blood Negative (Negative) Urine Nitrite Negative (Negative) Urine Bilirubin Negative (Negative) Urine Urobilinogen <2.0 (<2.0) mg/dL Ur Leukocyte Esterase Negative (Negative) Urine WBC 5 (0-5) /hpf Amorphous Sediment Few H (None) /hpf Urine HCG, Qual (Not Detectd) Disposition Clinical Impression: Low TSH level, Fatigue Disposition: HOME SELF-CARE Condition: Good Instructions: Fatigue (ED) Additional Instructions: Please use medication as discussed. Please follow-up with life insurance underwriter/ family doctor in the next 2 days of symptoms have not improved. Please return to emergency room if the symptoms increase or worsen or for any other concerns. Is patient prescribed a controlled substance at d/c from ED?: No Referrals: Harjinder Mcdonald MD [Primary Care Provider] - 1-2 days Time of Disposition: 14:19
[2017-12-05 13:02] LABS: Basophils % (A) 0 %; Eosinophils # (A) 0.1 k/uL (0-0.7); Eosinophils % (A) 1 %; HCT 39.9 % (34.0-46.0); HGB 13.1 gm/dL (11.4-16.0); Lymphocytes # (A) 2.5 k/uL (1.0-4.8); Lymphocytes % (A) 30 %; MCH 28.2 pg (25.0-35.0); MCHC 32.9 g/dL (31.0-37.0); MCV 85.6 fL (80.0-100.0); Mean Platelet Volume 6.9; Monocytes # (A) 0.4 k/uL (0-1.0); Monocytes % (A) 5 %; Neutrophils # (A) 5.2 k/uL (1.3-7.7); Neutrophils % (A) 62 %; Platelet Count 199 k/uL (150-450); RBC 4.67 m/uL (3.80-5.40); RDW 13.3 % (11.5-15.5); WBC 8.4 k/uL (3.8-10.6)
[2017-12-05 13:15] LABS: Amorphous Sediment,Urine Few /hpf; Appearance,Urine Turbid (Clear); Bilirubin,Urine Negative (Negative); Blood,Urine Negative (Negative); Color,Urine Yellow; Glucose,Urine (UA) Negative (Negative); Ketones,Urine Negative (Negative); Leukocyte Esterase,Urine Negative (Negative); Nitrite,Urine Negative (Negative); PH, Urine 7.5 (5.0-8.0); Protein,Urine Negative (Negative); Specific Gravity,Urine 1.019 (1.001-1.035); Urobilinogen,Urine <2.0 mg/dL (<2.0); WBC,Urine 5 /hpf (0-5)
[2017-12-05 13:17] LABS: ALT 19 U/L (9-52); AST 16 U/L (14-36); Albumin 4.2 g/dL (3.5-5.0); Alkaline Phosphatase 54 U/L (38-126); Anion Gap 7 mmol/L; Blood Urea Nitrogen 16 mg/dL (7-17); Calcium 9.5 mg/dL (8.4-10.2); Carbon Dioxide 24 mmol/L (22-30); Chloride 109 mmol/L (98-107); Glucose 86 mg/dL (74-99); Potassium 4.1 mmol/L (3.5-5.1); Sodium 140 mmol/L (137-145); Total Bilirubin 0.1 mg/dL (0.2-1.3); Total Protein 6.9 g/dL (6.3-8.2)
[2017-12-05 14:16] VITALS: BP 120/68; PULSE 71; RESP 18; TEMP 98.7
[2017-12-05 14:22] LABS: T4, Free (Free Thyroxine) 1.21 ng/dL (0.78-2.19)
== END 2017-12-05 14:35 | disposition home or self-care (01) ==
LOC: EC 11:31
DX: R53.83 Other fatigue (principal); R94.6 Abnormal results of thyroid function studies; F90.9 Attention-deficit hyperactivity disorder, unspecified type; F31.9 Bipolar disorder, unspecified; F41.0 Panic disorder [episodic paroxysmal anxiety]; F17.200 Nicotine dependence, unspecified, uncomplicated; Z79.899 Other long term (current) drug therapy; Z88.8 Allergy status to other drugs, medicaments and biological substances
CPT/HCPCS: 36415; 84439; 80053; 84443; 85025; 81001; 81025; 99283; 96374; J1885

== ENCOUNTER 2018-10-11 17:39 | Emergency (ER) | payer MEDICARE, OTHER ==
[2018-10-11 17:58] VITALS: RESP 18
[2018-10-11] MEDS ORDERED: diphenhydrAMINE 50 MG/ML 1 ML VIAL IVP STA (19:57)
[2018-10-11] MEDS ORDERED: METOCLOPRAMIDE 5 MG/ML 2 ML VIAL IVP STA (19:57)
[2018-10-11] MEDS ORDERED: SODIUM CHLORIDE 0.9% 1,000 ML IV ONE (19:57)
[2018-10-11 20:33] LABS: Amorphous Sediment,Urine Occasional /hpf; Appearance,Urine Turbid (Clear); Bilirubin,Urine Negative (Negative); Blood,Urine Small (Negative); Color,Urine Yellow; Glucose,Urine (UA) Negative (Negative); Ketones,Urine Trace (Negative); Leukocyte Esterase,Urine Small (Negative); Mucus,Urine Many /hpf; Nitrite,Urine Negative (Negative); PH, Urine 7.5 (5.0-8.0); Protein,Urine 1+ (Negative); RBC,Urine 50 /hpf (0-5); Specific Gravity,Urine 1.031 (1.001-1.035)
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
[2018-10-11 20:38] LABS: Basophils % (A) 1 %; Eosinophils # (A) 0.1 k/uL (0-0.7); Eosinophils % (A) 1 %; HCT 41.1 % (34.0-46.0); HGB 13.5 gm/dL (11.4-16.0); Lymphocytes # (A) 1.5 k/uL (1.0-4.8); Lymphocytes % (A) 22 %; MCH 27.5 pg (25.0-35.0); MCHC 32.9 g/dL (31.0-37.0); MCV 83.8 fL (80.0-100.0); Mean Platelet Volume 7.4; Monocytes # (A) 0.5 k/uL (0-1.0); Monocytes % (A) 7 %; Neutrophils # (A) 4.5 k/uL (1.3-7.7); Neutrophils % (A) 66 %; Platelet Count 197 k/uL (150-450); RBC 4.91 m/uL (3.80-5.40); RDW 15.3 % (11.5-15.5); WBC 6.8 k/uL (3.8-10.6)
[2018-10-11 20:45] LABS: ALT 15 U/L (9-52); AST 30 U/L (14-36); Albumin 4.7 g/dL (3.5-5.0); Alkaline Phosphatase 80 U/L (38-126); Anion Gap 12 mmol/L; Blood Urea Nitrogen 10 mg/dL (7-17); Calcium 9.5 mg/dL (8.4-10.2); Carbon Dioxide 23 mmol/L (22-30); Chloride 104 mmol/L (98-107); Glucose 91 mg/dL (74-99); Potassium 4.5 mmol/L (3.5-5.1); Sodium 139 mmol/L (137-145); Total Bilirubin 0.5 mg/dL (0.2-1.3); Total Protein 7.9 g/dL (6.3-8.2)
[2018-10-11] MEDS ORDERED: KETOROLAC 30 MG/ML 1 ML VIAL IVP STA (21:21)
--- NOTE | 2018-10-11 21:42 | XR ---
EXAMINATION TYPE: XR cervical spine comp DATE OF EXAM: 10/11/2018 COMPARISON: NONE HISTORY: Pain TECHNIQUE: 5 views FINDINGS: Cervical vertebra have normal spacing and alignment. Posterior elements are intact. Neural foramina are widely patent. Atlantoaxial facet joint is normal. There are no cervical ribs. IMPRESSION: Negative cervical spine exam.
[2018-10-11 21:58] VITALS: BP 102/60; PULSE 84; TEMP 97.8
== END 2018-10-11 21:58 | disposition home or self-care (01) ==
LOC: EC 17:39
DX: R51 Headache (principal); R20.2 Paresthesia of skin; R11.0 Nausea; H53.149 Visual discomfort, unspecified; T36.1X5A Adverse effect of cephalosporins and other beta-lactam antibiotics, initial encounter; N39.0 Urinary tract infection, site not specified; L73.9 Follicular disorder, unspecified; F31.9 Bipolar disorder, unspecified; F41.0 Panic disorder [episodic paroxysmal anxiety]; F90.9 Attention-deficit hyperactivity disorder, unspecified type; F17.200 Nicotine dependence, unspecified, uncomplicated; Z88.1 Allergy status to other antibiotic agents; Z88.8 Allergy status to other drugs, medicaments and biological substances; Z79.899 Other long term (current) drug therapy
CPT/HCPCS: 36415; 80053; 85025; 81001; 81025; 72050; 99284; 96374; 96375 ×2; 96361; J1200; J2765; J1885

== ENCOUNTER 2018-10-13 07:33 | Emergency (ER) | payer MEDICARE, OTHER ==
[2018-10-13 07:37] VITALS: TEMP 99.4
[2018-10-13] MEDS ORDERED: KETOROLAC 30 MG/ML 1 ML VIAL IVP STA (07:57)
[2018-10-13] MEDS ORDERED: METOCLOPRAMIDE 5 MG/ML 2 ML VIAL IVP STA (07:57)
[2018-10-13] MEDS ORDERED: diphenhydrAMINE 50 MG/ML 1 ML VIAL IVP STA (07:57)
[2018-10-13] MEDS ORDERED: SODIUM CHLORIDE 0.9% 1,000 ML IV STA (07:57)
[2018-10-13] MEDS ORDERED: ORPHENADRINE 30 MG/ML 2 ML VIAL IVP STA (07:58)
[2018-10-13] MEDS ORDERED: LORazepam 2 MG/ML INJ IV STA (07:59)
[2018-10-13] MEDS ORDERED: SODIUM CHLORIDE 0.9% 1,000 ML IV SCH (08:00)
--- NOTE | 2018-10-13 08:01 | ED ---
General Adult HPI - General Chief complaint: Headache Stated complaint: Headache, abd pain Time Seen by Provider: 10/13/18 07:49 Source: patient, RN notes reviewed, old records reviewed Mode of arrival: ambulatory Limitations: no limitations - History of Present Illness Initial comments: Patient is a 28-year-old female with history of anxiety, bipolar disorder, and recent urinary tract infection presents emergency department today for evaluation with complaints of headache, and left lower quadrant abdominal pain. Patient was seen in emergency department 2 days ago for similar complaints. Patient that time received migraine cocktail, and stated her symptoms felt better for a few hours afterward. Patient states that she feels she is having her continuing care of her child due to the pain of her head and neck. Patient states that she was just switched on antibiotics while she was emergency department from Keflex to Bactrim. She states she continues to feel shows urinary tract infection. Patient states that she's had no vaginal bleeding or discharge. History of surgeries include tubal ligation. Patient denies any chest pain or shortness of breath. - Related Data Home Medications Medication Instructions Recorded Confirmed OXcarbazepine [Trileptal] 150 mg PO BID 12/05/17 10/11/18 traZODone HCL [Trazodone HCl] 100 mg PO HS 12/05/17 10/11/18 Dextroamphetamine/Amphetamine 20 mg PO BID 10/11/18 10/11/18 [Adderall Xr] Methimazole [Tapazole] 5 mg PO Q48H 10/11/18 10/11/18 Methimazole [Tapazole] 7.5 mg PO Q48H 10/11/18 10/11/18 busPIRone HCL [Buspar] 15 mg PO TID 10/11/18 10/11/18 Previous Rx's Medication Instructions Recorded Sulfamethox-Tmp 800-160Mg [Bactrim 1 tab PO Q12HR #10 tab 10/11/18 DS 800-160 mg] Allergies Allergy/AdvReac Type Severity Reaction Status Date / Time cephalexin [From Keflex] Allergy Nausea & Verified 10/13/18 07:37 Vomiting lamotrigine [From Lamictal] Allergy Unknown Verified 10/13/18 07:37 topiramate [From Topamax] Allergy Anaphylaxis Verified 10/13/18 07:37 Review of Systems ROS Statement: Those systems with pertinent positive or pertinent negative responses have been documented in the HPI. ROS Other: All systems not noted in ROS Statement are negative. Past Medical History Additional Past Medical History / Comment(s): stomach ulcer History of Any Multi-Drug Resistant Organisms: None Reported Past Surgical History: Tonsillectomy, Tubal Ligation Additional Past Surgical History / Comment(s): EGD Past Psychological History: ADD/ADHD, Anxiety, Bipolar, Depression, Panic Disorder Smoking Status: Current every day smoker Past Alcohol Use History: Occasional Past Drug Use History: Marijuana - Past Family History Mother Additional Family Medical History / Comment(s): Hypertension, hyperparathyroidism, posttraumatic stress disorder Father Additional Family Medical History / Comment(s): being evaluated for stroke and possible palpitations General Exam - General Exam Comments Initial Comments: This is a 28-year-old male. Alert and oriented. No distress. Limitations: no limitations General appearance: alert, in no apparent distress Head exam: Present: atraumatic, normocephalic, normal inspection Eye exam: Present: normal appearance, PERRL, EOMI. Absent: scleral icterus, conjunctival injection, periorbital swelling ENT exam: Present: normal exam, mucous membranes moist Neck exam: Present: normal inspection. Absent: tenderness, meningismus, lymphadenopathy Respiratory exam: Present: normal lung sounds bilaterally. Absent: respiratory distress, wheezes, rales, rhonchi, stridor Cardiovascular Exam: Present: regular rate, normal rhythm, normal heart sounds. Absent: systolic murmur, diastolic murmur, rubs, gallop, clicks GI/Abdominal exam: Present: soft, tenderness (minimal LLQ suprapubic tenderness), normal bowel sounds. Absent: distended, guarding, rebound, rigid Extremities exam: Present: normal inspection, full ROM, normal capillary refill. Absent: tenderness, pedal edema, joint swelling, calf tenderness Back exam: Present: normal inspection Neurological exam: Present: alert, oriented X3, CN II-XII intact Psychiatric exam: Present: normal mood, anxious. Absent: normal affect Skin exam: Present: warm, dry, intact, normal color. Absent: rash Course Vital Signs 10/13/18 07:35 Temperature 99.4 F Pulse Rate 97 Respiratory 18 Rate Blood Pressure 116/81 O2 Sat by Pulse 96 Oximetry - Reevaluation(s) Reevaluation #1: 10/13/18 09:42 Patient is reevaluated resting comfortably bed at this time. She states her migraine is gone. Medical Decision Making - Medical Decision Making Is a 28-year-old female presents for his parents today with complaints of migraine-like headache. Checked emergency department appearing somewhat anxious. She states that she was seen and treated for UTI and migraine headache 2 days ago. At this time she is given IV fluids, migraine cocktail. She was given a dose of Ativan and she. Very anxious and crying and tearful. Patient on reevaluation states her migraine is diminished. No signs of neurological deficits on physical exam. The persistent migraine-like headache and unilateral I discussed unlikely to warrant imaging. Patient and patient's family agrees. Patient will be continued on Bactrim for concern for UTI, she has 2 more days from previous Rx. I discussed that Patient has noted blood work was reviewed and normal. Discussion is to follow-up with her PCP tomorrow. All questions answered return parameters were discussed. - Lab Data Result diagrams: 10/13/18 08:30 10/13/18 08:30 Lab Results 10/13/18 10/13/18 10/13/18 Range/Units 08:30 08:30 08:30 WBC 5.6 (3.8-10.6) k/uL RBC 4.65 (3.80-5.40) m/uL Hgb 12.8 (11.4-16.0) gm/dL Hct 38.7 (34.0-46.0) % MCV 83.2 (80.0-100.0) fL MCH 27.5 (25.0-35.0) pg MCHC 33.0 (31.0-37.0) g/dL RDW 15.3 (11.5-15.5) % Plt Count 173 (150-450) k/uL Neutrophils % 64 % Lymphocytes % 26 % Monocytes % 6 % Eosinophils % 1 % Basophils % 1 % Neutrophils # 3.6 (1.3-7.7) k/uL Lymphocytes # 1.5 (1.0-4.8) k/uL Monocytes # 0.3 (0-1.0) k/uL Eosinophils # 0.0 (0-0.7) k/uL Basophils # 0.0 (0-0.2) k/uL Sodium 138 (137-145) mmol/L Potassium 3.9 (3.5-5.1) mmol/L Chloride 107 (98-107) mmol/L Carbon Dioxide 22 (22-30) mmol/L Anion Gap 9 mmol/L BUN 8 (7-17) mg/dL Creatinine 0.72 (0.52-1.04) mg/dL Est GFR (CKD-EPI)AfAm >90 (>60 ml/min/1.73 sqM) Est GFR (CKD-EPI)NonAf >90 (>60 ml/min/1.73 sqM) Glucose 89 (74-99) mg/dL Calcium 8.7 (8.4-10.2) mg/dL Total Bilirubin 0.3 (0.2-1.3) mg/dL AST 21 (14-36) U/L ALT 21 (9-52) U/L Alkaline Phosphatase 72 (38-126) U/L Total Protein 7.1 (6.3-8.2) g/dL Albumin 4.2 (3.5-5.0) g/dL Urine Color Yellow Urine Appearance Cloudy H (Clear) Urine pH 6.0 (5.0-8.0) Ur Specific [place] 1.028 (1.001-1.035) Urine Protein 1+ H (Negative) Urine Glucose (UA) Negative (Negative) Urine Ketones Negative (Negative) Urine Blood Small H (Negative) Urine Nitrite Negative (Negative) Urine Bilirubin Negative (Negative) Urine Urobilinogen <2.0 (<2.0) mg/dL Ur Leukocyte Esterase Moderate H (Negative) Urine RBC 10 H (0-5) /hpf Urine WBC 19 H (0-5) /hpf Ur Squamous Epith Cells 4 (0-4) /hpf Urine Bacteria Rare H (None) /hpf Urine Mucus Moderate H (None) /hpf Disposition Clinical Impression: UTI (urinary tract infection), Headache, Neck muscle spasm Disposition: HOME SELF-CARE Condition: Good Instructions (If sedation given, give patient instructions): Acute Headache (ED) Additional Instructions: Follow-up with your primary care physician. Patient should finish Rx for bactrim. Have close follow-up with PCP. Return to the emergency department if any alarming signs or symptoms occur. Is patient prescribed a controlled substance at d/c from ED?: No Referrals: Harjinder Mcdonald MD [Primary Care Provider] - 1-2 days Time of Disposition: 09:44
[2018-10-13 08:43] LABS: Basophils % (A) 1 %; Eosinophils % (A) 1 %; HCT 38.7 % (34.0-46.0); HGB 12.8 gm/dL (11.4-16.0); Lymphocytes # (A) 1.5 k/uL (1.0-4.8); Lymphocytes % (A) 26 %; MCH 27.5 pg (25.0-35.0); MCV 83.2 fL (80.0-100.0); Mean Platelet Volume 7.3; Monocytes # (A) 0.3 k/uL (0-1.0); Monocytes % (A) 6 %; Neutrophils # (A) 3.6 k/uL (1.3-7.7); Neutrophils % (A) 64 %; Platelet Count 173 k/uL (150-450); RBC 4.65 m/uL (3.80-5.40); RDW 15.3 % (11.5-15.5); WBC 5.6 k/uL (3.8-10.6)
[2018-10-13 08:46] LABS: Appearance,Urine Cloudy (Clear); Bacteria,Urine Rare /hpf; Bilirubin,Urine Negative (Negative); Blood,Urine Small (Negative); Color,Urine Yellow; Glucose,Urine (UA) Negative (Negative); Ketones,Urine Negative (Negative); Leukocyte Esterase,Urine Moderate (Negative); Mucus,Urine Moderate /hpf; Nitrite,Urine Negative (Negative); Protein,Urine 1+ (Negative); RBC,Urine 10 /hpf (0-5); Specific Gravity,Urine 1.028 (1.001-1.035); Squamous Epithelial Cell,Urine 4 /hpf (0-4); Urobilinogen,Urine <2.0 mg/dL (<2.0)
[2018-10-13 08:53] LABS: ALT 21 U/L (9-52); AST 21 U/L (14-36); African American GFR (CKD) >90 (>60 ml/min/1.73 sqM); Albumin 4.2 g/dL (3.5-5.0); Alkaline Phosphatase 72 U/L (38-126); Anion Gap 9 mmol/L; Blood Urea Nitrogen 8 mg/dL (7-17); Calcium 8.7 mg/dL (8.4-10.2); Carbon Dioxide 22 mmol/L (22-30); Chloride 107 mmol/L (98-107); Glucose 89 mg/dL (74-99); Potassium 3.9 mmol/L (3.5-5.1); Sodium 138 mmol/L (137-145); Total Bilirubin 0.3 mg/dL (0.2-1.3); Total Protein 7.1 g/dL (6.3-8.2)
[2018-10-13 10:13] VITALS: BP 99/58; PULSE 86; RESP 16
== END 2018-10-13 10:16 | disposition home or self-care (01) ==
LOC: EC 07:33
DX: N39.0 Urinary tract infection, site not specified (principal); R51 Headache; M62.838 Other muscle spasm; R10.32 Left lower quadrant pain; F90.9 Attention-deficit hyperactivity disorder, unspecified type; F31.9 Bipolar disorder, unspecified; F41.0 Panic disorder [episodic paroxysmal anxiety]; F17.200 Nicotine dependence, unspecified, uncomplicated; Z79.899 Other long term (current) drug therapy; Z88.1 Allergy status to other antibiotic agents; Z88.8 Allergy status to other drugs, medicaments and biological substances; Z98.51 Tubal ligation status
CPT/HCPCS: 36415; 80053; 85025; 81001; 87086; 99284; 96374; 96375 ×4; 96361 ×2; J2060; J1200; J2360; J2765; J1885

== ENCOUNTER 2018-10-21 09:06 | Emergency (ER) | payer MEDICARE, OTHER ==
[2018-10-21] MEDS ORDERED: MORPHINE SULFATE 4 MG/ML SYRINGE IM STA (09:47)
[2018-10-21] MEDS ORDERED: KETOROLAC 30 MG/ML 1 ML VIAL IM STA (09:47)
[2018-10-21 10:22] LABS: Appearance,Urine Clear (Clear); Bilirubin,Urine Negative (Negative); Blood,Urine Negative (Negative); Color,Urine Yellow; Glucose,Urine (UA) Negative (Negative); Ketones,Urine Negative (Negative); Leukocyte Esterase,Urine Large (Negative); Mucus,Urine Rare /hpf; Nitrite,Urine Negative (Negative); Protein,Urine Negative (Negative); Specific Gravity,Urine 1.017 (1.001-1.035); Squamous Epithelial Cell,Urine 3 /hpf (0-4); Urobilinogen,Urine <2.0 mg/dL (<2.0); WBC,Urine 30 /hpf (0-5)
--- NOTE | 2018-10-21 10:25 | ED ---
General Adult HPI - General Chief complaint: Back Pain/Injury Stated complaint: back pain Time Seen by Provider: 10/21/18 09:34 Source: patient, RN notes reviewed, old records reviewed Mode of arrival: ambulatory Limitations: no limitations - History of Present Illness Initial comments: 28-year-old female presents for evaluation of low back pain. She states she has had chronic low back pain however this has worsened over the past 3-4 days patient was seen at an outside hospital and had x-ray of the lumbar spine she states that her pain has continued despite treatment with gabapentin. She denies any lower extremity symptoms, no numbness or tingling, no leg weakness. No shooting pain in the lower extremities Pain is bilateral lower spine. No f ever or chills. No dysuria or hematuria. No history of kidney stones. No abdominal pain. No chest pain or dyspnea. - Related Data Home Medications Medication Instructions Recorded Confirmed OXcarbazepine [Trileptal] 150 mg PO BID 12/05/17 10/21/18 traZODone HCL [Trazodone HCl] 100 mg PO HS 12/05/17 10/21/18 Dextroamphetamine/Amphetamine 20 mg PO BID 10/11/18 10/21/18 [Adderall Xr] Methimazole [Tapazole] 5 mg PO Q48H 10/11/18 10/21/18 Methimazole [Tapazole] 7.5 mg PO Q48H 10/11/18 10/21/18 busPIRone HCL [Buspar] 15 mg PO TID 10/11/18 10/21/18 Cyclobenzaprine [Flexeril] 5 mg PO TID 10/21/18 10/21/18 Gabapentin [Neurontin] 300 mg PO TID 10/21/18 10/21/18 Previous Rx's Medication Instructions Recorded HYDROcodone/APAP 5-325MG [[place] 1 tab PO Q6HR PRN #12 tab 10/21/18 5-325] methylPREDNISolone Dose Pack 4 mg PO DIRECTED #21 package 10/21/18 [Medrol Dose Pack] Allergies Allergy/AdvReac Type Severity Reaction Status Date / Time lamotrigine [From Lamictal] Allergy Unknown Verified 10/21/18 09:30 topiramate [From Topamax] Allergy Anaphylaxis Verified 10/21/18 09:30 cephalexin [From Keflex] AdvReac Nausea & Verified 10/21/18 09:30 Vomiting Review of Systems ROS Statement: Those systems with pertinent positive or pertinent negative responses have been documented in the HPI. ROS Other: All systems not noted in ROS Statement are negative. Past Medical History Additional Past Medical History / Comment(s): stomach ulcer History of Any Multi-Drug Resistant Organisms: None Reported Past Surgical History: Tonsillectomy, Tubal Ligation Additional Past Surgical History / Comment(s): EGD Past Psychological History: ADD/ADHD, Anxiety, Bipolar, Depression, Panic Disorder Smoking Status: Current every day smoker Past Alcohol Use History: Occasional Past Drug Use History: Marijuana - Past Family History Mother Additional Family Medical History / Comment(s): Hypertension, hyperparathyroidism, posttraumatic stress disorder Father Additional Family Medical History / Comment(s): being evaluated for stroke and possible palpitations General Exam Limitations: no limitations General appearance: alert, in no apparent distress Head exam: Present: atraumatic, normocephalic Eye exam: Present: normal appearance, PERRL ENT exam: Present: normal exam Neck exam: Present: normal inspection. Absent: tenderness, meningismus Respiratory exam: Present: normal lung sounds bilaterally. Absent: respiratory distress, wheezes Cardiovascular Exam: Present: regular rate, normal rhythm GI/Abdominal exam: Present: soft. Absent: distended, tenderness, guarding, rebound Extremities exam: Present: normal inspection, normal capillary refill. Absent: pedal edema Back exam: Present: normal inspection, tenderness, paraspinal tenderness, vertebral tenderness Neurological exam: Present: alert, oriented X3, CN II-XII intact, normal gait. Absent: motor sensory deficit Psychiatric exam: Present: normal affect, normal mood Skin exam: Present: warm, dry, intact. Absent: cyanosis, diaphoretic Course Vital Signs 10/21/18 09:15 Temperature 97.8 F Pulse Rate 85 Respiratory 18 Rate Blood Pressure 108/77 Medical Decision Making - Medical Decision Making 28-year-old female with acute on chronic back pain. Pain is lumbar sacral to bilateral. CT is performed, shows partial sacralization of the L5 vertebrae, and disc herniation on the left at L4-L5. Patient has no radicular symptoms. She is given morphine, Toradol in the emergency department. On reevaluation she is resting comfortably. She will be given orthopedic spinal follow-up. She will be prescribed course of steroids and anti-inflammatories. - Lab Data Lab Results 10/21/18 10/21/18 Range/Units 10:00 10:00 Urine Color Yellow Urine Appearance Clear (Clear) Urine pH 6.0 (5.0-8.0) Ur Specific [place] 1.017 (1.001-1.035) Urine Protein Negative (Negative) Urine Glucose (UA) Negative (Negative) Urine Ketones Negative (Negative) Urine Blood Negative (Negative) Urine Nitrite Negative (Negative) Urine Bilirubin Negative (Negative) Urine Urobilinogen <2.0 (<2.0) mg/dL Ur Leukocyte Esterase Large H (Negative) Urine WBC 30 H (0-5) /hpf Ur Squamous Epith Cells 3 (0-4) /hpf Urine Mucus Rare H (None) /hpf Urine HCG, Qual Not Detected (Not Detectd) Disposition Clinical Impression: Strain of lumbar region, Herniation of left side of L4-L5 intervertebral disc Disposition: HOME SELF-CARE Condition: Good Instructions (If sedation given, give patient instructions): Acute Low Back Pain (ED) Prescriptions: methylPREDNISolone Dose Pack [Medrol Dose Pack] 4 mg PO DIRECTED #21 package HYDROcodone/APAP 5-325MG [[place] 5-325] 1 tab PO Q6HR PRN #12 tab PRN Reason: Pain Is patient prescribed a controlled substance at d/c from ED?: Yes When asked, does pt state using other controlled substances?: No If prescribed controlled substance>3 days was MAPS reviewed?: Prescribed <3 Days If opioid is for acute pain is fill amount 7 days or less?: Yes If Rx opioid, was Start Talking consent form obtained?: Yes Referrals: Harjinder Mcdonald MD [Primary Care Provider] - 1-2 days Janey Patel DO [Doctor of Osteopathic Medicine] - 1-2 days Time of Disposition: 11:42
[2018-10-21] MEDS ORDERED: HYDROcodone/APAP 5-325MG 1 EACH TAB PO STA (11:04)
--- NOTE | 2018-10-21 11:07 | CT ---
EXAMINATION TYPE: CT lumbar spine wo con DATE OF EXAM: 10/21/2018 10:55 AM COMPARISON: None. HISTORY: Low back pain. No known injury. CT DLP: 1357 mGycm Automated exposure control for dose reduction was used. Unenhanced CT of the lumbar spine was performed. Bone and soft tissue window settings are submitted as well as coronal and sagittal reconstructions. There are 5 lumbar-type vertebra. There is partially sacralized left L5 segment that has some scleros is and spurring at articulation with left S1 segment coronal image 35 which may account for patient's pain. There is mild disc space narrowing L4-L5 level and moderate disc space narrowing L5-S1 level. Vertebral body heights are maintained. Posterior disc herniations are not identified on sagittal imag es. Axial images at T12-L1 level are felt within normal limits. L1-L2: Normal disc space height. No disc herniation protrusion or central stenosis. No facet joint arthropathy. No evidence for foraminal encroachment. L2-L3: Normal disc space height. No disc herniation protrusion or central stenosis. No facet joint arthropathy. No evidence for foraminal encroachment. L3-L4: Mild facet degenerative changes bilaterally. L4-L5: Mild to minimal facet degenerative changes bilaterally. Left paracentral/foraminal axial image 56 effaces anterolateral thecal sac and lateral recess and causes mild left-sided anterior inferior neural foraminal narrowing disc protrusion L5-S1: Normal disc space height. No disc herniation protrusion or central stenosis. No facet joint arthropathy. No evidence for foraminal encroachment. Normal-appearing appendix incidentally noted axial image 67. There is 2 mm nonobstructing left renal calculus felt present coronal image 31 lower pole level left kidney. IMPRESSION: Suspect 2 mm lower pole left renal calculus. Partially sacralized left L5 segment may cau se pain on articulation with left S1 segment. Left-sided eccentric disc herniation L4-L5 level noted.
[2018-10-21 11:56] VITALS: BP 119/82; PULSE 80; RESP 17; TEMP 98.7
== END 2018-10-21 11:56 | disposition home or self-care (01) ==
LOC: EC 09:06
DX: S39.012A Strain of muscle, fascia and tendon of lower back, initial encounter (principal); M51.26 Other intervertebral disc displacement, lumbar region; M43.27 Fusion of spine, lumbosacral region; F90.9 Attention-deficit hyperactivity disorder, unspecified type; F32.9 Major depressive disorder, single episode, unspecified; F41.0 Panic disorder [episodic paroxysmal anxiety]; F17.200 Nicotine dependence, unspecified, uncomplicated; Z79.899 Other long term (current) drug therapy; Z88.1 Allergy status to other antibiotic agents; Z88.8 Allergy status to other drugs, medicaments and biological substances; Z98.51 Tubal ligation status
CPT/HCPCS: 81001; 81025; 72131; 99284; 96372 ×2; J2270; J1885

== ENCOUNTER 2020-10-24 12:11 | Emergency (ER) | payer MEDICARE, OTHER ==
[2020-10-24 12:15] VITALS: TEMP 97.4
[2020-10-24] MEDS ORDERED: ORPHENADRINE 30 MG/ML 2 ML VIAL IM STA (12:28)
[2020-10-24] MEDS ORDERED: KETOROLAC 15 MG/ML 1 ML VIAL IM STA (12:28)
--- NOTE | 2020-10-24 12:37 | ED ---
Back Pain HPI - General Chief Complaint: Back Pain/Injury Stated Complaint: Back Pain Source: patient, RN notes reviewed, old records reviewed Limitations: no limitations - History of Present Illness Initial Comments: 30-year-old white female patient presents to the emergency room with complaints of left low back and buttock pain that started this morning approximately 2 hours ago. Patient states that she has been moving several boxes up and down stairs all day yesterday and this morning when she got up and walked down the stairs she felt a locking in her low back inability to walk related to the pain. Patient states that she get relief laying flat. has been unable to walk. she says drove her to the emergency room. Patient states she has had a history of back problems in the past. Patient is a daily smoker. Has a history of hypothyroid, mood disorders and depression. Patient denies any fevers, incontinence of bowel or bladder, no traumatic injury. Patient states she did not try any medications at home for relief. In the past with back pain she has seen a chiropractor but has stopped going. MD Complaint: back pain -: hour(s) (2) Place: home Radiation: buttocks, left leg Severity: severe Severity scale (1-10): 10 Quality: stabbing Consistency: constant Improves With: immobilization Worsens With: movement, walking Context: other (Was moving several boxes up and down stairs yesterday) Associated Symptoms: denies other symptoms - Related Data Home Medications Medication Instructions Recorded Confirmed Dextroamphetamine/Amphetamine 20 mg PO BID 10/11/18 10/24/20 [Adderall Xr] methIMAzole [Tapazole] 7.5 mg PO Q48H 10/11/18 10/24/20 methIMAzole [Tapazole] 10 mg PO Q48H 10/11/18 10/24/20 Albuterol Inhaler [Ventolin Hfa 2 puff INHALATION RT-QID PRN 10/24/20 10/24/20 Inhaler] Melatonin 10 mg PO HS PRN 10/24/20 10/24/20 Sertraline [Zoloft] 150 mg PO HS 10/24/20 10/24/20 traZODone HCL 150 mg PO HS 10/24/20 10/24/20 Previous Rx's Medication Instructions Recorded predniSONE 50 mg PO DAILY #5 tab 10/24/20 Allergies Allergy/AdvReac Type Severity Reaction Status Date / Time lamotrigine [From Lamictal] Allergy Unknown Verified 10/24/20 13:17 topiramate [From Topamax] Allergy Anaphylaxis Verified 10/24/20 13:17 cephalexin [From Keflex] AdvReac Nausea & Verified 10/24/20 13:17 Vomiting Review of Systems ROS Statement: Those systems with pertinent positive or pertinent negative responses have been documented in the HPI. ROS Other: All systems not noted in ROS Statement are negative. Past Medical History Additional Past Medical History / Comment(s): stomach ulcer, back pain History of Any Multi-Drug Resistant Organisms: None Reported Past Surgical History: Tonsillectomy, Tubal Ligation Additional Past Surgical History / Comment(s): EGD Past Psychological History: ADD/ADHD, Anxiety, Bipolar, Depression, Panic Disorder Smoking Status: Current every day smoker Past Alcohol Use History: Occasional Past Drug Use History: Marijuana - Past Family History Mother Additional Family Medical History / Comment(s): Hypertension, hyperparathyroidism, posttraumatic stress disorder Father Additional Family Medical History / Comment(s): being evaluated for stroke and possible palpitations General Exam Limitations: no limitations General appearance: alert, in no apparent distress Head exam: Present: atraumatic, normocephalic, normal inspection Eye exam: Present: normal appearance, PERRL, EOMI. Absent: scleral icterus, conjunctival injection, periorbital swelling Pupils: Present: normal accommodation ENT exam: Present: normal exam, normal oropharynx, mucous membranes moist Neck exam: Present: normal inspection, full ROM. Absent: tenderness, meningismus, lymphadenopathy Respiratory exam: Present: normal lung sounds bilaterally. Absent: respiratory distress, wheezes, rales, rhonchi, stridor, chest wall tenderness, accessory muscle use, decreased breath sounds Cardiovascular Exam: Present: regular rate, normal rhythm, normal heart sounds. Absent: systolic murmur, diastolic murmur, rubs, gallop, clicks GI/Abdominal exam: Present: soft, normal bowel sounds. Absent: distended, ten derness, guarding, rebound, rigid Extremities exam: Present: normal inspection, normal capillary refill. Absent: tenderness, pedal edema, joint swelling, calf tenderness Left Hip exam: Present: tenderness (Pain radiates into her lower back and buttock with flexion), pelvic stability Upper Leg exam: Absent: tenderness Knee exam: Present: full ROM, full knee extension Lower Leg exam: Present: full ROM. Absent: tenderness Ankle exam: Present: normal inspection. Absent: tenderness Foot/Toe exam: Present: normal inspection. Absent: tenderness Neurovascular tendon exam: Present: no vascular compromise. Absent: pulse deficit, abnormal cap refill, motor deficit, sensory deficit, tendon deficit, extremity cold to touch, pallor, foot drop Back exam: Present: normal inspection, tenderness (Left lumbar), paraspinal tenderness. Absent: CVA tenderness (R), CVA tenderness (L), vertebral tenderness, rash noted Neurological exam: Present: alert, oriented X3, CN II-XII intact Psychiatric exam: Present: normal affect, normal mood Skin exam: Present: warm, dry, intact, normal color. Absent: rash Course Vital Signs 10/24/20 10/24/20 10/24/20 12:12 12:15 13:15 Temperature 97.4 F L Pulse Rate 70 62 Respiratory 16 18 18 Rate Blood Pressure 102/75 101/65 O2 Sat by Pulse 98 98 Oximetry Medical Decision Making - Medical Decision Making Patient has a history of low back pain and had a CT done in 2019 which showed L5-S1 sacralized L4-L5 disc herniations. Patient denies any trauma, she has no unexpected weight loss she has no cancer history. She denies any saddle anesthesia, incontinence of bowel or bladder. Patient reports no fevers nausea vomiting diarrhea. No chronic steroids. She is a smoker but denies any IV drug abuse. Distal pedal pulses are present and equal bilaterally. Patient states that the pain started after repetitive carrying of boxes up and down stairs yesterday which likely aggravated her low back pain. Patient has positive straight leg test on the left. Identifies pain with palpation at sciatic notch and states that pain shoots down the back of her left thigh. Patient will be discharged home on prednisone for 5 days doctor to follow up with her primary care doctor with parameters to return if worsening symptoms, fever or bowel or bladder incontinence. Case discussed with Dr. Mcdonald. Disposition Clinical Impression: Sciatic leg pain Disposition: HOME SELF-CARE Condition: Fair Instructions (If sedation given, give patient instructions): Acute Low Back Pain (ED) Additional Instructions: Return to the emergency room if worsening pain, incontinence of bowel or bladder, fevers, numbness or tingling. Follow-up with the primary care doctor within the next 3 days. Take prednisone as prescribed. Do not take Motrin while taking steroids, use Tylenol instead. Rest, use heat or ice and no heavy lifting. Prescriptions: predniSONE 50 mg PO DAILY #5 tab Is patient prescribed a controlled substance at d/c from ED?: No Referrals: Harjinder Mcdonald MD [Primary Care Provider] - 1-2 days Time of Disposition: 14:32
[2020-10-24 13:48] VITALS: RESP 18
[2020-10-24] MEDS ORDERED: methylPREDNISolone SOD SUCCI 125 MG/2 ML VIAL IM ONE (14:27)
[2020-10-24 15:04] VITALS: BP 104/70; PULSE 66
== END 2020-10-24 14:51 | disposition home or self-care (01) ==
LOC: EC 12:11
DX: M54.42 Lumbago with sciatica, left side (principal); F31.9 Bipolar disorder, unspecified; F41.9 Anxiety disorder, unspecified; F90.9 Attention-deficit hyperactivity disorder, unspecified type; F17.200 Nicotine dependence, unspecified, uncomplicated; F12.90 Cannabis use, unspecified, uncomplicated; Z79.51 Long term (current) use of inhaled steroids; Z79.52 Long term (current) use of systemic steroids; Z79.899 Other long term (current) drug therapy
CPT/HCPCS: 96372 ×4; 99283 ×2; J2360; J2930; J1885

== ENCOUNTER 2020-11-28 17:00 | Emergency (ER) | payer OTHER ==
[2020-11-28 17:16] VITALS: BP 105/72; PULSE 99; RESP 16; TEMP 98.1
[2020-11-28] MEDS ORDERED: LIDOCAINE 1% INJ 10MG/ML (20 ML MDV) SQ ONE (17:40)
[2020-11-28] MEDS ORDERED: DIPH,PERTUS(ACELL)TETVAC-LF 0.5 ML VIAL IM ONE (18:02)
--- NOTE | 2020-11-28 18:04 | ED ---
Wound/Laceration HPI - General Chief Complaint: Wound/Laceration Stated Complaint: Finger laceration Source: patient, RN notes reviewed Mode of arrival: ambulatory Limitations: no limitations - History of Present Illness Initial Comments: Patient is a 30-year-old female that presents to the emergency department with a left index finger laceration. She notes she was cutting food up when she cut the proximal pad of her index finger laterally across thing. She is unsure of her last tetanus vaccine. She noted that it was not very painful she did have range of motion and sensation in her index finger. She denied any other issues or complaints. She denied any chest pain shortness of breath headache nausea vomiting diarrhea constipation fever fatigue chills. - Related Data Home Medications Medication Instructions Recorded Confirmed Dextroamphetamine/Amphetamine 20 mg PO BID 10/11/18 10/24/20 [Adderall Xr] methIMAzole [Tapazole] 7.5 mg PO Q48H 10/11/18 10/24/20 methIMAzole [Tapazole] 10 mg PO Q48H 10/11/18 10/24/20 Albuterol Inhaler [Ventolin Hfa 2 puff INHALATION RT-QID PRN 10/24/20 10/24/20 Inhaler] Melatonin 10 mg PO HS PRN 10/24/20 10/24/20 Sertraline [Zoloft] 150 mg PO HS 10/24/20 10/24/20 traZODone HCL 150 mg PO HS 10/24/20 10/24/20 Previous Rx's Medication Instructions Recorded predniSONE 50 mg PO DAILY #5 tab 10/24/20 Allergies Allergy/AdvReac Type Severity Reaction Status Date / Time lamotrigine [From Lamictal] Allergy Unknown Verified 11/28/20 17:13 topiramate [From Topamax] Allergy Anaphylaxis Verified 11/28/20 17:13 cephalexin [From Keflex] AdvReac Nausea & Verified 11/28/20 17:13 Vomiting Review of Systems ROS Statement: Those systems with pertinent positive or pertinent negative responses have been documented in the HPI. ROS Other: All systems not noted in ROS Statement are negative. Past Medical History Past Medical History: No Reported History Additional Past Medical History / Comment(s): stomach ulcer, back pain History of Any Multi-Drug Resistant Organisms: None Reported Past Surgical History: Tonsillectomy, Tubal Ligation Additional Past Surgical History / Comment(s): EGD Past Psychological History: ADD/ADHD, Anxiety, Bipolar, Depression, Panic Disorder Smoking Status: Current every day smoker Past Alcohol Use History: Occasional Past Drug Use History: Marijuana - Past Family History Mother Additional Family Medical History / Comment(s): Hypertension, hyperparathyroidism, posttraumatic stress disorder Father Additional Family Medical History / Comment(s): being evaluated for stroke and possible palpitations General Exam Limitations: no limitations General appearance: alert, in no apparent distress Head exam: Present: atraumatic, normocephalic, normal inspection Eye exam: Present: normal appearance, PERRL, EOMI. Absent: scleral icterus, conjunctival injection, periorbital swelling Neck exam: Present: normal inspection Respiratory exam: Present: normal lung sounds bilaterally. Absent: respiratory distress, wheezes, rales, rhonchi, stridor Cardiovascular Exam: Present: regular rate, normal rhythm, normal heart sounds. Absent: systolic murmur, diastolic murmur, rubs, gallop, clicks Extremities exam: Present: normal inspection, full ROM, normal capillary refill. Absent: tenderness, pedal edema, joint swelling, calf tenderness Left Hand Wrist exam: Present: normal inspection, full ROM, laceration (Roxanol pad of the index finger laterally across the whole thing measuring approximately 3 cm). Absent: tenderness, swelling Neurological exam: Present: alert, oriented X3 Psychiatric exam: Present: normal affect, normal mood Skin exam: Present: warm, dry, intact, normal color. Absent: rash Course Vital Signs 11/28/20 17:13 Temperature 98.1 F Pulse Rate 99 Respiratory 16 Rate Blood Pressure 105/72 O2 Sat by Pulse 96 Oximetry Procedures - Laceration Laceration #1 Consent Obtained: verbal consent Indication: laceration Site: hand (Left index finger proximal pad) Size (cm): 3 Description: linear Depth: simple, single layer Anesthetic Used: lidocaine 1% Anesthesia Technique: local infiltration Amount (mls): 5 Pre-repair: irrigated extensively Type of Sutures: nylon Size of Sutures: 5-0 Number of Sutures: 4 Technique: simple, interrupted Patient Tolerated Procedure: well, no complications Medical Decision Making - Medical Decision Making 30-year-old female with a left index finger proximal pad laceration. Patient does have full range of motion of her left index ear. Lidocaine, tetanus vaccine ordered. Patient tolerated suturing well. Case discussed with Dr. Whatley, patient can discharge home with follow-up to primary care. Disposition Clinical Impression: Laceration Disposition: HOME SELF-CARE Condition: Stable Instructions (If sedation given, give patient instructions): Laceration (ED), Care For Your Stitches (ED) Additional Instructions: Please return to the Emergency Department if symptoms worsen or any other concerns. Follow-up with primary care in the next several days. Please return in 7-10 days to have sutures removed. Keep areas clean and as dry as possible. Is patient prescribed a controlled substance at d/c from ED?: No Referrals: Harjinder Mcdonald MD [Primary Care Provider] - 1-2 days Time of Disposition: 18:04
== END 2020-11-28 18:20 | disposition home or self-care (01) ==
LOC: EC 17:00
DX: S61.211A Laceration without foreign body of left index finger without damage to nail, initial encounter (principal); F31.9 Bipolar disorder, unspecified; F41.9 Anxiety disorder, unspecified; F90.9 Attention-deficit hyperactivity disorder, unspecified type; F17.200 Nicotine dependence, unspecified, uncomplicated; F12.90 Cannabis use, unspecified, uncomplicated; Z79.52 Long term (current) use of systemic steroids; Z79.899 Other long term (current) drug therapy; Z79.51 Long term (current) use of inhaled steroids; Z23 Encounter for immunization; W26.0XXA Contact with knife, initial encounter; Y93.G9 Activity, other involving cooking and grilling
CPT/HCPCS: 90715; 12002; 90471; 99282; J2001

== ENCOUNTER 2021-01-23 09:21 | Emergency (ER) | payer OTHER ==
[2021-01-23 09:37] VITALS: RESP 18
[2021-01-23] MEDS ORDERED: AZITHROMYCIN 500 MG TAB PO STA (10:09)
[2021-01-23] MEDS ORDERED: PENICILLIN G BENZATHINE 1,200,000 UNIT/2 ML SYRINGE IM STA (10:16)
[2021-01-23 10:19] LABS: Appearance,Urine Cloudy (Clear); Bilirubin,Urine Negative (Negative); Blood,Urine Negative (Negative); Color,Urine Yellow; Glucose,Urine (UA) Negative (Negative); Ketones,Urine Negative (Negative); Leukocyte Esterase,Urine Negative (Negative); Mucus,Urine Few /hpf; Nitrite,Urine Negative (Negative); Protein,Urine Trace (Negative); RBC,Urine 2 /hpf (0-5); Specific Gravity,Urine 1.026 (1.001-1.035); Squamous Epithelial Cell,Urine 6 /hpf (0-4); Urobilinogen,Urine <2.0 mg/dL (<2.0); WBC,Urine 1 /hpf (0-5)
--- NOTE | 2021-01-23 10:37 | ED ---
General Adult HPI - General Chief complaint: Skin/Abscess/Foreign Body Stated complaint: wants STD test Time Seen by Provider: 01/23/21 09:42 Source: patient Mode of arrival: ambulatory Limitations: no limitations - History of Present Illness Initial comments: 30-year-old female presents to the emergency room for a chief complaint of possible exposure to syphilis. Patient states her boyfriend had a painful lesion on his penis that resembled a pimple. She states he had a telemetry health visit and was given doxycycline for possible syphilis. She reports that she was told she should be treated as well. Patient denies any symptoms. Denies abdominal pain. Denies fevers or chills. Denies any concerning discharge.Patient has no other complaints at this time including shortness of breath, chest pain, abdominal pain, nausea or vomiting, headache, or visual changes. - Related Data Home Medications Medication Instructions Recorded Confirmed Dextroamphetamine/Amphetamine 20 mg PO BID 10/11/18 10/24/20 [Adderall Xr] methIMAzole [Tapazole] 7.5 mg PO Q48H 10/11/18 10/24/20 methIMAzole [Tapazole] 10 mg PO Q48H /11/2210/24/20 Albuterol Inhaler [Ventolin Hfa 2 puff INHALATION RT-QID PRN 10/24/20 10/24/20 Inhaler] Melatonin 10 mg PO HS PRN 10/24/20 10/24/20 Sertraline [Zoloft] 150 mg PO HS 10/24/20 10/24/20 traZODone HCL 150 mg PO HS 10/24/20 10/24/20 Previous Rx's Medication Instructions Recorded predniSONE 50 mg PO DAILY #5 tab 10/24/20 Allergies Allergy/AdvReac Type Severity Reaction Status Date / Time lamotrigine [From Lamictal] Allergy Unknown Verified 01/23/21 09:37 topiramate [From Topamax] Allergy Anaphylaxis Verified 01/23/21 09:37 cephalexin [From Keflex] AdvReac Nausea & Verified 01/23/21 09:37 Vomiting Review of Systems ROS Statement: Those systems with pertinent positive or pertinent negative responses have been documented in the HPI. ROS Other: All systems not noted in ROS Statement are negative. Past Medical History Past Medical History: No Reported History Additional Past Medical History / Comment(s): stomach ulcer, back pain History of Any Multi-Drug Resistant Organisms: None Reported Past Surgical History: Tonsillectomy, Tubal Ligation Additional Past Surgical History / Comment(s): EGD Past Psychological History: ADD/ADHD, Anxiety, Bipolar, Depression, Panic Disorder Smoking Status: Current every day smoker Past Alcohol Use History: Occasional Past Drug Use History: Marijuana - Past Family History Mother Additional Family Medical History / Comment(s): Hypertension, hyperparathyroidism, posttraumatic stress disorder Father Additional Family Medical History / Comment(s): being evaluated for stroke and possible palpitations General Exam Limitations: no limitations General appearance: alert, in no apparent distress Head exam: Present: atraumatic Eye exam: Present: normal appearance, PERRL, EOMI. Absent: scleral icterus, conjunctival injection ENT exam: Present: normal exam, mucous membranes moist Neck exam: Present: normal inspection, full ROM. Absent: tenderness Respiratory exam: Present: normal lung sounds bilaterally. Absent: respiratory distress, wheezes Cardiovascular Exam: Present: regular rate, normal rhythm, normal heart sounds GI/Abdominal exam: Present: soft, normal bowel sounds. Absent: distended, tenderness Course Vital Signs 01/23/21 09:32 Temperature 98 F Pulse Rate 100 Respiratory 18 Rate Blood Pressure 115/78 O2 Sat by Pulse 97 Oximetry Medical Decision Making - Medical Decision Making Items are stable. No abdominal tenderness. Patient does not have any symptoms associated. We will test patient for gonorrhea Chlamydia and Trichomonas. Patient preferred to self swab rather than have pelvic exam performed given she is not having any discharge or pain. I discussed with patient that it is unlikely to be syphilis as he had a painful lesion. However we've agreed we will treat her with 1 IM injection of penicillin. There is concern that this lesion could also be a chancroid and patient was also given a gram of azithromycin orally. This will cover a chancroid as well as Chlamydia. We will await gonorrhea results for treatment. Trichomonas is negative. Patient will abstain from sexual intercourse until results are back. She will return here for any worsening symptoms. - Lab Data Lab Results 01/23/21 01/23/21 01/23/21 Range/Units 10:04 10:04 10:04 Urine Color Yellow Urine Appearance Cloudy H (Clear) Urine pH 8.0 (5.0-8.0) Ur Specific [place] 1.026 (1.001-1.035) Urine Protein Trace H (Negative) Urine Glucose (UA) Negative (Negative) Urine Ketones Negative (Negative) Urine Blood Negative (Negative) Urine Nitrite Negative (Negative) Urine Bilirubin Negative (Negative) Urine Urobilinogen <2.0 (<2.0) mg/dL Ur Leukocyte Esterase Negative (Negative) Urine RBC 2 (0-5) /hpf Urine WBC 1 (0-5) /hpf Ur Squamous Epith Cells 6 H (0-4) /hpf Urine Mucus Few H (None) /hpf Urine HCG, Qual Not Detected (Not Detectd) Trichomonas Ag (Rapid) Negative (Negative) Disposition Clinical Impression: Exposure to STD Disposition: HOME SELF-CARE Condition: Good Instructions (If sedation given, give patient instructions): Sexually T ransmitted Diseases (ED) Additional Instructions: Please follow up on STD results. Return to the emergency room for any worsening symptoms. Is patient prescribed a controlled substance at d/c from ED?: No Referrals: None,Stated [Primary Care Provider] - 1-2 days
[2021-01-23 11:03] VITALS: BP 117/80; PULSE 90; TEMP 98
[2021-01-24 14:06] LABS: C. trachomatis,PCR Negative (Neg,Equiv); Chlamydia trachomatis Source Urine; N. gonorrhoeae,PCR Negative (Neg,Equiv); Neisseria Source Urine
== END 2021-01-23 11:00 | disposition home or self-care (01) ==
LOC: EC 09:21
DX: Z20.2 Contact with and (suspected) exposure to infections with a predominantly sexual mode of transmission (principal); F90.9 Attention-deficit hyperactivity disorder, unspecified type; F31.9 Bipolar disorder, unspecified; F41.0 Panic disorder [episodic paroxysmal anxiety]; F17.200 Nicotine dependence, unspecified, uncomplicated; F12.90 Cannabis use, unspecified, uncomplicated; Z72.89 Other problems related to lifestyle
CPT/HCPCS: 81001; 81025; 87808; 87491; 87591; 99283; 96372; J0561

== ENCOUNTER 2021-01-26 07:43 | Emergency (ER) | payer OTHER ==
--- NOTE | 2021-01-26 08:15 | ED ---
General Adult HPI - General Chief complaint: Upper Respiratory Infection Stated complaint: Cough, vomiting Time Seen by Provider: 01/26/21 07:56 Source: patient, RN notes reviewed Mode of arrival: ambulatory Limitations: no limitations - History of Present Illness Initial comments: 30-year-old female presents to the emergency room for a chief complaint of cough. Patient reports she has had a productive cough for about 2 days now. States she is coughing up phlegm. Patient does admit to smoking history. Patient denies fevers. Denies shortness of breath. States her son is also sick.Patient has no other complaints at this time including shortness of breath, chest pain, abdominal pain, nausea or vomiting, headache, or visual changes. - Related Data Home Medications Medication Instructions Recorded Confirmed Dextroamphetamine/Amphetamine 20 mg PO BID 10/11/18 01/26/21 [Adderall Xr] methIMAzole [Tapazole] 10 mg PO DAILY 10/11/18 01/26/21 Sertraline [Zoloft] 150 mg PO HS 10/24/20 01/26/21 traZODone HCL 150 mg PO HS 10/24/20 01/26/21 Previous Rx's Medication Instructions Recorded Albuterol Inhaler [Ventolin Hfa 2 puff INHALATION RT-QID PRN #8 gm 01/26/21 Inhaler] Benzonatate [Tessalon Perles] 200 mg PO Q8H PRN #15 cap 01/26/21 guaiFENesin [Mucinex] 600 mg PO Q12HR PRN #20 tab 01/26/21 predniSONE 50 mg PO DAILY #5 tablet 01/26/21 Allergies Allergy/AdvReac Type Severity Reaction Status Date / Time lamotrigine [From Lamictal] Allergy Unknown Verified 01/26/21 09:33 topiramate [From Topamax] Allergy Anaphylaxis Verified 01/26/21 09:33 cephalexin [From Keflex] AdvReac Nausea & Verified 01/26/21 09:33 Vomiting Review of Systems ROS Statement: Those systems with pertinent positive or pertinent negative responses have been documented in the HPI. ROS Other: All systems not noted in ROS Statement are negative. Past Medical History Past Medical History: No Reported History Additional Past Medical History / Comment(s): stomach ulcer, back pain History of Any Multi-Drug Resistant Organisms: None Reported Past Surgical History: Tonsillectomy, Tubal Ligation Additional Past Surgical History / Comment(s): EGD Past Psychological History: ADD/ADHD, Anxiety, Bipolar, Depression, Panic Disorder Smoking Status: Current every day smoker Past Alcohol Use History: Occasional, Rare Past Drug Use History: Marijuana - Past Family History Mother Additional Family Medical History / Comment(s): Hypertension, hyperparathyroidism, posttraumatic stress disorder Father Additional Family Medical History / Comment(s): being evaluated for stroke and possible palpitations General Exam Limitations: no limitations General appearance: alert, in no apparent distress Head exam: Present: atraumatic Eye exam: Present: normal appearance, PERRL, EOMI. Absent: scleral icterus, conjunctival injection ENT exam: Present: normal exam, mucous membranes moist Neck exam: Present: normal inspection, full ROM. Absent: tenderness Respiratory exam: Present: normal lung sounds bilaterally, other. Absent: respiratory distress, wheezes Cardiovascular Exam: Present: regular rate, normal rhythm, normal heart sounds Neurological exam: Present: alert Course Vital Signs 01/26/21 01/26/21 07:52 09:40 Temperature 99.3 F 98.5 F Pulse Rate 90 88 Respiratory 18 19 Rate Blood Pressure 116/81 138/79 O2 Sat by Pulse 96 97 Oximetry Medical Decision Making - Medical Decision Making Diaz virus is negative. Chest x-ray shows no acute process. Patient does have some minimal wheezing on exam. She'll be treated with steroids, inhaler, and supportive medication. She will follow-up with her doctor. She will return here for any worsening symptoms. - Lab Data Lab Results 01/26/21 Range/Units 08:19 Coronavirus (PCR) Not Detected (Not Detectd) Disposition Clinical Impression: Cough Disposition: HOME SELF-CARE Condition: Good Instructions (If sedation given, give patient instructions): Upper Respiratory Infection (ED) Additional Instructions: Please take medications as directed. Follow-up with your doctor in one to 2 days. Return to the emergency room for any worsening symptoms. Prescriptions: guaiFENesin [Mucinex] 600 mg PO Q12HR PRN #20 tab PRN Reason: Congestion predniSONE 50 mg PO DAILY #5 tablet Benzonatate [Tessalon Perles] 200 mg PO Q8H PRN #15 cap PRN Reason: Cough Albuterol Inhaler [Ventolin Hfa Inhaler] 2 puff INHALATION RT-QID PRN #8 gm PRN Reason: Shortness Of Breath Is patient prescribed a controlled substance at d/c from ED?: No Time of Disposition: 09:25
--- NOTE | 2021-01-26 08:48 | XR ---
EXAMINATION TYPE: XR chest 2V DATE OF EXAM: 01/26/2021 COMPARISON: None HISTORY: 30-year-old female with cough TECHNIQUE: PA and lateral views FINDINGS: Heart normal size. Aorta and pulmonary vasculature within normal limits. No consolidation pleural eff usion. IMPRESSION: No acute cardiopulmonary process.
[2021-01-26 09:41] VITALS: BP 138/79; PULSE 88; RESP 19; TEMP 98.5
== END 2021-01-26 09:40 | disposition home or self-care (01) ==
LOC: EC 07:43
DX: R05 Cough (principal); F90.9 Attention-deficit hyperactivity disorder, unspecified type; F41.9 Anxiety disorder, unspecified; F31.9 Bipolar disorder, unspecified; F17.200 Nicotine dependence, unspecified, uncomplicated; F12.90 Cannabis use, unspecified, uncomplicated; Z88.1 Allergy status to other antibiotic agents; Z90.89 Acquired absence of other organs; Z98.51 Tubal ligation status; Z20.822 Contact with and (suspected) exposure to COVID-19
CPT/HCPCS: 71046; 87635; 99283

== ENCOUNTER → 2021-02-01 | Outpatient (CLI) | payer OTHER ==
--- NOTE | 2021-02-01 15:39 | US ---
EXAMINATION TYPE: US thyroid st tissue head/neck DATE OF EXAM: 02/01/2021 COMPARISON: NONE CLINICAL HISTORY: 30-year-old female E04.1 HOT THYROID NODULE. Patient states nodule found on thyroid at outside facility a couple years ago. TECHNIQUE: Multiple sonographic images of the thyroid gland are obtained. FINDINGS: GLAND SIZE: Right Lobe: 5.2 x 1.4 x 1.3 cm Overall Parenchyma: heterogenous Left Lobe: 5.2 x 1.4 x 1.0 cm Overall Parenchyma: heterogeneous Isthmus Thickness: 0.5 cm NODULES RIGHT: # of nodules measured on right: 0 LEFT: # of nodules measured on left: 1 1. 1.2 X 0.9 x 0.8 cm, lower medial, solid or almost completely solid, hypoechoic TR5 nodule, which is wider than tall, with smooth margins, with echogenic foci. Very inferior Prior size: No previous ISTHMUS: # of nodules measured in the isthmus: 0 Bilateral neck scanned, no evidence of lymphadenopathy. IMPRESSION: 1. Borderline to mild thyromegaly, possible goiter. 2. Solitary solid TR5 nodule left lower pole with punctate calcifications. FNA recommended.
== END | disposition home or self-care (01) ==
LOC: RADUSWWP 12:52
PROVIDERS: ATTEND Internal Medicine Endocrinology, Diabetes & Metabolism
DX: E04.2 Nontoxic multinodular goiter (principal)
CPT/HCPCS: 76536

== ENCOUNTER 2021-03-20 14:43 | Emergency (ER) | payer OTHER ==
[2021-03-20 15:33] VITALS: BP 105/65; PULSE 97; RESP 16; TEMP 97.8
--- NOTE | 2021-03-20 17:21 | ED ---
General Adult HPI - General Chief complaint: ENT Stated complaint: Sore throat,Headache Time Seen by Provider: 03/20/21 16:59 Source: patient, RN notes reviewed Mode of arrival: ambulatory Limitations: no limitations - History of Present Illness Initial comments: 31-year-old female presents to the emergency Department with complaints of head pressure, pain in her ears, and a sore throat. Patient states her symptoms began this morning. Patient states she is concerned because a friend of a friend tested positive for Covid and she would like to be tested. She states she has not taken anything to treat her symptoms prior to arrival. Patient denies any shortness of breath or difficulty breathing; no cough or congestion. - Related Data Home Medications Medication Instructions Recorded Confirmed Dextroamphetamine/Amphetamine 20 mg PO BID 10/11/18 01/26/21 [Adderall Xr] methIMAzole [Tapazole] 10 mg PO DAILY 10/11/18 01/26/21 Sertraline [Zoloft] 150 mg PO HS 10/24/20 01/26/21 traZODone HCL 150 mg PO HS 10/24/20 01/26/21 Previous Rx's Medication Instructions Recorded Albuterol Inhaler [Ventolin Hfa 2 puff INHALATION RT-QID PRN #8 gm 01/26/21 Inhaler] Benzonatate [Tessalon Perles] 200 mg PO Q8H PRN #15 cap 01/26/21 guaiFENesin [Mucinex] 600 mg PO Q12HR PRN #20 tab 01/26/21 predniSONE 50 mg PO DAILY #5 tablet 01/26/21 Allergies Allergy/AdvReac Type Severity Reaction Status Date / Time lamotrigine [From Lamictal] Allergy Unknown Verified 03/20/21 15:33 topiramate [From Topamax] Allergy Anaphylaxis Verified 03/20/21 15:33 cephalexin [From Keflex] AdvReac Nausea & Verified 03/20/21 15:33 Vomiting Review of Systems ROS Statement: Those systems with pertinent positive or pertinent negative responses have been documented in the HPI. ROS Other: All systems not noted in ROS Statement are negative. Past Medical History Past Medical History: No Reported History Additional Past Medical History / Comment(s): stomach ulcer, back pain History of Any Multi-Drug Resistant Organisms: None Reported Past Surgical History: Tonsillectomy, Tubal Ligation Additional Past Surgical History / Comment(s): EGD Past Psychological History: ADD/ADHD, Anxiety, Bipolar, Depression, Panic Disorder Smoking Status: Current every day smoker Past Alcohol Use History: Occasional, Rare Past Drug Use History: Marijuana - Past Family History Mother Additional Family Medical History / Comment(s): Hypertension, hyperparathyroidism, posttraumatic stress disorder Father Additional Family Medical History / Comment(s): being evaluated for stroke and possible palpitations General Exam Limitations: no limitations (Well-developed, well-nourished female in no acute distress. Initial temperature 97.8, pulse 97, respiration 16, blood pressure 105/65, pulse ox 97% on room air.) General appearance: alert, in no apparent distress ENT exam: Present: normal exam, normal oropharynx, mucous membranes moist, TM's normal bilaterally Neck exam: Present: normal inspection. Absent: tenderness, meningismus, lymphadenopathy Respiratory exam: Present: normal lung sounds bilaterally. Absent: respiratory distress, wheezes, rales, rhonchi, stridor Cardiovascular Exam: Present: regular rate, normal rhythm, normal heart sounds. Absent: systolic murmur, diastolic murmur, rubs, gallop, clicks GI/Abdominal exam: Present: soft, normal bowel sounds. Absent: distended, tenderness, guarding, rebound, rigid Neurological exam: Present: alert, oriented X3, CN II-XII intact Skin exam: Present: warm, dry, intact, normal color. Absent: rash Course Vital Signs 03/20/21 15:30 Temperature 97.8 F Pulse Rate 97 Respiratory 16 Rate Blood Pressure 105/65 O2 Sat by Pulse 97 Oximetry Medical Decision Making - Medical Decision Making 31-year-old female was evaluated for upper respiratory infection symptoms. Patient is primarily concerned about a Covid exposure. Upon exam, patient appe ars well, no cough, congestion, or shortness of breath. She was afebrile and resting comfortably. Covid swab is negative. Results were reviewed with patient. Instructed to continue using caution in her interactions and to retest if symptoms persist. Patient will be discharged home with instructions to the discomfort symptomatically. And to follow up with her primary care provider for a recheck in the next 1-2 days. Return parameters were discussed in detail. Patient verbalizes understanding and agrees with this plan. This patient's care was discussed with my attending Dr. Mcdonald. - Lab Data Lab Results 03/20/21 Range/Units 15:34 Coronavirus (PCR) Not Detected (Not Detectd) Disposition Clinical Impression: Viral upper respiratory illness Disposition: HOME SELF-CARE Condition: Stable Instructions (If sedation given, give patient instructions): Upper Respiratory Infection (ED) Additional Instructions: Rest. Increase fluids. Treatment discomfort with Tylenol or Motrin. May take oral decongestant if needed. Follow up with your primary care provider for a recheck the next 1-2 days. Into the emergency department with any new, worsening, or concerning symptoms. Is patient prescribed a controlled substance at d/c from ED?: No Referrals: None,Stated [Primary Care Provider] - 1-2 days Time of Disposition: 17:26
== END 2021-03-20 17:35 | disposition home or self-care (01) ==
LOC: EC 14:43
DX: J06.9 Acute upper respiratory infection, unspecified (principal); F90.9 Attention-deficit hyperactivity disorder, unspecified type; F41.9 Anxiety disorder, unspecified; F31.9 Bipolar disorder, unspecified; F17.200 Nicotine dependence, unspecified, uncomplicated; F12.90 Cannabis use, unspecified, uncomplicated; Z20.822 Contact with and (suspected) exposure to COVID-19; Z88.1 Allergy status to other antibiotic agents; Z98.51 Tubal ligation status; Z90.89 Acquired absence of other organs
CPT/HCPCS: 87635; 99284

== ENCOUNTER 2021-07-04 08:55 | Day surgery (SDC) | payer OTHER ==
[2021-07-04 09:29] VITALS: RESP 16; TEMP 98.1
[2021-07-04] MEDS ORDERED: ALPRAZolam 0.5 MG TAB PO STA (09:36)
[2021-07-04 10:53] VITALS: BP 105/71; PULSE 84
--- NOTE | 2021-07-04 12:01 | US ---
EXAMINATION TYPE: US FNA thyroid first lesion DATE OF EXAM: 07/04/2021 COMPARISON: NONE HISTORY: Thyroid nodule, E04.1 Maximal barrier technique was utilized. Ultrasound using sterile technique. The skin overlying the no dule in the inferior aspect of the isthmus towards the left was localized with ultrasound and the ove rlying skin prepped and draped. Lidocaine used for local anesthesia. 5 passes with a 25-gauge needle were made into the nodule under ultrasound guidance. Aspirate specimen submitted to cytology. Followi ng the procedure hemostasis achieved. No immediate complication IMPRESSION: Status post ultrasound-guided fine-needle aspiration of thyroid nodule, pathology pending .
== END 2021-07-04 10:47 | disposition home or self-care (01) ==
LOC: RADPROMAIN 08:55
PROVIDERS: ATTEND Family Medicine
DX: E04.1 Nontoxic single thyroid nodule (principal)
CPT/HCPCS: 10005; 88173; 88305

== ENCOUNTER 2022-08-31 11:05 | Emergency (ER) | payer OTHER ==
[2022-08-31 11:10] VITALS: TEMP 97.5
[2022-08-31] MEDS ORDERED: SODIUM CHLORIDE 0.9% 1,000 ML IV ONE ×2 (11:18→12:58)
[2022-08-31] MEDS ORDERED: ONDANSETRON 4 MG/2 ML VIAL IVP STA (11:19)
[2022-08-31] MEDS ORDERED: LOPERAMIDE 2 MG CAP PO STA (11:52)
[2022-08-31 12:06] LABS: Basophils % (A) 0 %; Eosinophils # (A) 0.1 k/uL (0-0.7); Eosinophils % (A) 1 %; HCT 42.5 % (34.0-46.0); HGB 13.7 gm/dL (11.4-16.0); Lymphocytes % (A) 8 %; MCH 25.8 pg (25.0-35.0); MCHC 32.1 g/dL (31.0-37.0); MCV 80.2 fL (80.0-100.0); Mean Platelet Volume 7.7; Monocytes # (A) 0.4 k/uL (0-1.0); Monocytes % (A) 4 %; Neutrophils # (A) 10.3 k/uL (1.3-7.7); Neutrophils % (A) 86 %; Platelet Count 270 k/uL (150-450); RDW 14.9 % (11.5-15.5)
[2022-08-31 12:14] VITALS: BP 144/102; PULSE 85; RESP 18
[2022-08-31 12:19] LABS: ALT 19 U/L (4-34); AST 25 U/L (14-36); African American GFR (CKD) >90 (>60 ml/min/1.73 sqM); Albumin 4.7 g/dL (3.5-5.0); Alkaline Phosphatase 79 U/L (38-126); Anion Gap 12 mmol/L; Blood Urea Nitrogen 14 mg/dL (7-17); Calcium 9.4 mg/dL (8.4-10.2); Carbon Dioxide 19 mmol/L (22-30); Chloride 108 mmol/L (98-107); Glucose 95 mg/dL (74-99); Non-African American GFR(CKD) >90 (>60 ml/min/1.73 sqM); Potassium 4.2 mmol/L (3.5-5.1); Sodium 139 mmol/L (137-145); Total Bilirubin 0.5 mg/dL (0.2-1.3)
[2022-08-31] MEDS ORDERED: HALOPERIDOL LACTATE 5 MG/ML 1 ML VIAL IVP PRN (12:58)
--- NOTE | 2022-08-31 13:08 | ED ---
General Adult HPI - General Chief complaint: Nausea/Vomiting/Diarrhea Stated complaint: diarrhea and vomiting Time Seen by Provider: 08/31/22 11:10 Source: patient, RN notes reviewed Mode of arrival: ambulatory Limitations: no limitations - History of Present Illness Initial comments: 32-year-old female with no significant past medical history presents to the emergency department with a chief complaint of acute nausea and vomiting. Patient reports she woke up at 05 100 this morning with vomiting and diarrhea. She is not take anything for the symptoms. She denies any abdominal pain. She denies any fever, chills, fatigue, chest pain, shortness of breath, flank pain, dysuria, hematuria, melena, hematochezia. Patient reports no recent alcohol use however she does smoke marijuana. - Related Data Home Medications Medication Instructions Recorded Confirmed Sertraline [Zoloft] 200 mg PO HS 10/24/20 08/31/22 Dextroamphetamine/Amphetamine 10 mg PO DAILY 06/23/21 08/31/22 [Adderall Xr] Omeprazole [PriLOSEC] 40 mg PO DAILY 06/23/21 08/31/22 cloNIDine HCL 0.1 mg PO HS 06/23/21 08/31/22 Albuterol Inhaler [Ventolin Hfa 2 puff INHALATION RT-Q6H PRN 08/31/22 08/31/22 Inhaler] Ergocalciferol (Vitamin D2) 1,250 mcg PO Q7D 08/31/22 08/31/22 [Drisdol (50,000 Iu)] busPIRone HCL [Buspirone HCl] 5 mg PO TID PRN 08/31/22 08/31/22 traZODone HCL [Desyrel] 100 mg PO HS 08/31/22 08/31/22 Allergies Allergy/AdvReac Type Severity Reaction Status Date / Time lamotrigine [From Lamictal] Allergy lock jaw Verified 08/31/22 12:12 topiramate [From Topamax] Allergy Anaphylaxis Verified 08/31/22 12:12 cephalexin [From Keflex] AdvReac Nausea & Verified 08/31/22 12:12 Vomiting Review of Systems ROS Statement: Those systems with pertinent positive or pertinent negative responses have been documented in the HPI. ROS Other: All systems not noted in ROS Statement are negative. Past Medical History Past Medical History: Thyroid Disorder Additional Past Medical History / Comment(s): stomach ulcer, back pain, thyroid nodule History of Any Multi-Drug Resistant Organisms: None Reported Past Surgical History: Tonsillectomy, Tubal Ligation Additional Past Surgical History / Comment(s): EGD, booked for thyroid biopsy 07/04/21 Additional Past Anesthesia/Blood Transfusion Reaction / Comment(s): difficult to wake up and elevated heart rate. No previous blood transfusion Past Psychological History: ADD/ADHD, Anxiety, Depression, Panic Disorder, PTSD Smoking Status: Current every day smoker Past Alcohol Use History: Occasional Past Drug Use History: Marijuana - Past Family History Mother Family Medical History: Thyroid Disorder Additional Family Medical History / Comment(s): Hypertension, hyperparathyroidism, posttraumatic stress disorder Father Family Medical History: No Reported History Additional Family Medical History / Comment(s): being evaluated for stroke and possible palpitations General Exam - General Exam Comments Initial Comments: General: Alert, in no acute distress Head: atraumatic normocephalic. Eyes PERRL, EOMI intact, mucous membranes moist Respiratory: Lungs clear to auscultation bilaterally Cardiovascular: Heart rate regular rate and rhythm Abdominal: Soft without guarding or rebound, mild suprapubic tenderness Extremities: Normal inspection with full range of motion and normal capillary refill Neuroogic: alert and oriented 3, CN II-XII intact, able to ambulate with steady gait Skin: warm dry and intact with normal color Limitations: no limitations Course Vital Signs 08/31/22 08/31/22 11:08 12:13 Temperature 97.5 F L Pulse Rate 105 H 85 Respiratory 22 18 Rate Blood Pressure 131/89 144/102 O2 Sat by Pulse 99 99 Oximetry - Reevaluation(s) Reevaluation #1: 08/31/22 14:28 RN called] bedside. Patient left AGAINST MEDICAL ADVICE and eloped from the emergency department prior to completion of care Medical Decision Making - Lab Data Result diagrams: 08/31/22 11:38 08/31/22 11:38 Lab Results 08/31/22 08/31/22 08/31/22 Range/Units 11:38 11:38 11:38 WBC 12.0 H (3.8-10.6) k/uL RBC 5.30 (3.80-5.40) m/uL Hgb 13.7 (11.4-16.0) gm/dL Hct 42.5 (34.0-46.0) % MCV 80.2 (80.0-100.0) fL MCH 25.8 (25.0-35.0) pg MCHC 32.1 (31.0-37.0) g/dL RDW 14.9 (11.5-15.5) % Plt Count 270 (150-450) k/uL MPV 7.7 Neutrophils % 86 % Lymphocytes % 8 % Monocytes % 4 % Eosinophils % 1 % Basophils % 0 % Neutrophils # 10.3 H (1.3-7.7) k/uL Lymphocytes # 1.0 (1.0-4.8) k/uL Monocytes # 0.4 (0-1.0) k/uL Eosinophils # 0.1 (0-0.7) k/uL Basophils # 0.0 (0-0.2) k/uL Sodium 139 (137-145) mmol/L Potassium 4.2 (3.5-5.1) mmol/L Chloride 108 H (98-107) mmol/L Carbon Dioxide 19 L (22-30) mmol/L Anion Gap 12 mmol/L BUN 14 (7-17) mg/dL Creatinine 0.62 (0.52-1.04) mg/dL Est GFR (CKD-EPI)AfAm >90 (>60 ml/min/1.73 sqM) Est GFR (CKD-EPI)NonAf >90 (>60 ml/min/1.73 sqM) Glucose 95 (74-99) mg/dL Calcium 9.4 (8.4-10.2) mg/dL Total Bilirubin 0.5 (0.2-1.3) mg/dL AST 25 (14-36) U/L ALT 19 (4-34) U/L Alkaline Phosphatase 79 (38-126) U/L Total Protein 8.0 (6.3-8.2) g/dL Albumin 4.7 (3.5-5.0) g/dL Amylase (30-110) U/L Lipase (23-300) U/L Urine Color Urine Appearance (Clear) Urine pH (5.0-8.0) Ur Specific [place] (1.001-1.035) Urine Protein (Negative) Urine Glucose (UA) (Negative) Urine Ketones (Negative) Urine Blood (Negative) Urine Nitrite (Negative) Urine Bilirubin (Negative) Urine Urobilinogen (<2.0) mg/dL Ur Leukocyte Esterase (Negative) Urine RBC (0-5) /hpf Urine WBC (0-5) /hpf Ur Squamous Epith Cells (0-4) /hpf Urine Bacteria (None) /hpf Urine Mucus (None) /hpf Urine HCG, Qual (Not Detectd) Urine Opiates Screen (NotDetected) Ur Oxycodone Screen (NotDetected) Urine Methadone Screen (NotDetected) Ur Propoxyphene Screen (NotDetected) Ur Barbiturates Screen (NotDetected) U Tricyclic Antidepress (NotDetected) Ur Phencyclidine Scrn (NotDetected) Ur Amphetamines Screen (NotDetected) U Methamphetamines Scrn (NotDetected) U Benzodiazepines Scrn (NotDetected) Urine Cocaine Screen (NotDetected) U Marijuana (THC) Screen (NotDetected) Influenza Type A (PCR) Not Detected (Not Detectd) Influenza Type B (PCR) Not Detected (Not Detectd) RSV (PCR) Not Detected (Not Detectd) SARS-CoV-2 (PCR) Not Detected (Not Detectd) 08/31/22 08/31/22 08/31/22 Range/Units 11:38 11:38 13:11 WBC (3.8-10.6) k/uL RBC (3.80-5.40) m/uL Hgb (11.4-16.0) gm/dL Hct (34.0-46.0) % MCV (80.0-100.0) fL MCH (25.0-35.0) pg MCHC (31.0-37.0) g/dL RDW (11.5-15.5) % Plt Count (150-450) k/uL MPV Neutrophils % % Lymphocytes % % Monocytes % % Eosinophils % % Basophils % % Neutrophils # (1.3-7.7) k/uL Lymphocytes # (1.0-4.8) k/uL Monocytes # (0-1.0) k/uL Eosinophils # (0-0.7) k/uL Basophils # (0-0.2) k/uL Sodium (137-145) mmol/L Potassium (3.5-5.1) mmol/L Chloride (98-107) mmol/L Carbon Dioxide (22-30) mmol/L Anion Gap mmol/L BUN (7-17) mg/dL Creatinine (0.52-1.04) mg/dL Est GFR (CKD-EPI)AfAm (>60 ml/min/1.73 sqM) Est GFR (CKD-EPI)NonAf (>60 ml/min/1.73 sqM) Glucose (74-99) mg/dL Calcium (8.4-10.2) mg/dL Total Bilirubin (0.2-1.3) mg/dL AST (14-36) U/L ALT (4-34) U/L Alkaline Phosphatase (38-126) U/L Total Protein (6.3-8.2) g/dL Albumin (3.5-5.0) g/dL Amylase 59 (30-110) U/L Lipase 90 (23-300) U/L Urine Color Yellow Urine Appearance Cloudy H (Clear) Urine pH 5.5 (5.0-8.0) Ur Specific [place] 1.029 (1.001-1.035) Urine Protein Trace H (Negative) Urine Glucose (UA) Negative (Negative) Urine Ketones Negative (Negative) Urine Blood Small H (Negative) Urine Nitrite Negative (Negative) Urine Bilirubin Negative (Negative) Urine Urobilinogen <2.0 (<2.0) mg/dL Ur Leukocyte Esterase Negative (Negative) Urine RBC 2 (0-5) /hpf Urine WBC 3 (0-5) /hpf Ur Squamous Epith Cells 11 H (0-4) /hpf Urine Bacteria Rare H (None) /hpf Urine Mucus Many H (None) /hpf Urine HCG, Qual Not Detected (Not Detectd) Urine Opiates Screen Not Detected (NotDetected) Ur Oxycodone Screen Not Detected (NotDetected) Urine Methadone Screen Not Detected (NotDetected) Ur Propoxyphene Screen Not Detected (NotDetected) Ur Barbiturates Screen Not Detected (NotDetected) U Tricyclic Antidepress Not Detected (NotDetected) Ur Phencyclidine Scrn Not Detected (NotDetected) Ur Amphetamines Screen Not Detected (NotDetected) U Methamphetamines Scrn Not Detected (NotDetected) U Benzodiazepines Scrn Not Detected (NotDetected) Urine Cocaine Screen Not Detected (NotDetected) U Marijuana (THC) Screen Detected H (NotDetected) Influenza Type A (PCR) (Not Detectd) Influenza Type B (PCR) (Not Detectd) RSV (PCR) (Not Detectd) SARS-CoV-2 (PCR) (Not Detectd) Disposition Clinical Impression: Intractable nausea and vomiting Disposition: Left Against Medical Advice Condition: Undetermined Referrals: Aleksander Capone MD [Primary Care Provider] - 1-2 days Time of Disposition: 14:14
[2022-08-31 13:22] LABS: Appearance,Urine Cloudy (Clear); Bacteria,Urine Rare /hpf; Bilirubin,Urine Negative (Negative); Blood,Urine Small (Negative); Color,Urine Yellow; Glucose,Urine (UA) Negative (Negative); Ketones,Urine Negative (Negative); Leukocyte Esterase,Urine Negative (Negative); Mucus,Urine Many /hpf; Nitrite,Urine Negative (Negative); PH, Urine 5.5 (5.0-8.0); Protein,Urine Trace (Negative); RBC,Urine 2 /hpf (0-5); Specific Gravity,Urine 1.029 (1.001-1.035); Squamous Epithelial Cell,Urine 11 /hpf (0-4); Urobilinogen,Urine <2.0 mg/dL (<2.0); WBC,Urine 3 /hpf (0-5)
[2022-08-31 13:29] LABS: Amphetamine Screen,Urine Not Detected (NotDetected); Barbiturate Screen,Urine Not Detected (NotDetected); Benzodiazepines Screen,Urine Not Detected (NotDetected); Cocaine Screen,Urine Not Detected (NotDetected); Methadone Screen, Urine Not Detected (NotDetected); Opiate Screen,Urine Not Detected (NotDetected); Oxycodone Screen, Urine Not Detected (NotDetected); Phencyclidine Screen,Urine Not Detected (NotDetected); Tricyclic Antidepressant,Urine Not Detected (NotDetected); Urn Cannabinoid Scrn Detected (NotDetected)
--- NOTE | 2022-08-31 13:38 | CT ---
Sutures EXAMINATION TYPE: CT abdomen pelvis w con DATE OF EXAM: 08/31/2022 COMPARISON: None HISTORY: Nausea, vomiting, diarrhea CT DLP: 2072 mGycm CONTRAST: CT scan of the abdomen and pelvis is performed without Oral Contrast and with IV Contrast, patient in jected with 100 mL of Isovue 300. FINDINGS: LUNG BASES-: No visible nodule. No infiltrate. LIVER/GB: No calcified gallstones. No space occupying hepatic lesion. Biliary tree is of normal ca liber. PANCREAS: No inflammation. No distinct mass. SPLEEN: AP dimension of the spleen is enlarged at 15.5 cm. No lesion seen. ADRENALS: No nodule. No thickening. KIDNEYS/BLADDER: No hydronephrosis. No nephrolithiasis. No distinct renal mass. Urinary bladder g rossly unremarkable. BOWEL: Normal appendix. There is fluid distended small bowel with mild small bowel wall thickening wh ich may reflect enteritis. Large bowel is of normal caliber. No evidence for free air or free fluid. GENITAL ORGANS: No gross abnormality. LYMPH NODES: No greater than 1cm abdominal or pelvic lymph nodes are appreciated. AORTA: No significant abnormality. OSSEOUS STRUCTURES: No significant abnormality is seen. OTHER: No significant additional abnormality is seen. IMPRESSION: 1. There is fluid distended small bowel with mild small bowel wall thickening which may reflect enter itis.
[2022-08-31 14:28] LABS: Amylase 59 U/L (30-110); Lipase 90 U/L (23-300)
== END 2022-08-31 14:46 | disposition left against medical advice (07) ==
LOC: EC 11:05
DX: K52.9 Noninfective gastroenteritis and colitis, unspecified (principal); F90.9 Attention-deficit hyperactivity disorder, unspecified type; F41.9 Anxiety disorder, unspecified; F32.A Depression, unspecified; F17.200 Nicotine dependence, unspecified, uncomplicated; F12.90 Cannabis use, unspecified, uncomplicated; Z79.899 Other long term (current) drug therapy; Z88.1 Allergy status to other antibiotic agents; Z88.8 Allergy status to other drugs, medicaments and biological substances; Z20.822 Contact with and (suspected) exposure to COVID-19; Z53.29 Procedure and treatment not carried out because of patient's decision for other reasons
CPT/HCPCS: 99284; 96374; 96375; 96361 ×3; 36415; 80053; 82150; 83690; 85025; 81001; 81025; 80306; 87636; 74177; J1630; J2405; Q9967

== ENCOUNTER 2024-01-18 06:50 | Emergency (ER) | payer OTHER ==
[2024-01-18 06:59] VITALS: TEMP 98
--- NOTE | 2024-01-18 07:54 | ED ---
General Adult HPI - General Chief complaint: Nausea/Vomiting/Diarrhea Stated complaint: Nausea, Vomiting Time Seen by Provider: 01/18/24 07:32 Source: patient, RN notes reviewed, old records reviewed Mode of arrival: ambulatory Limitations: no limitations - History of Present Illness Initial comments: Patient is a 33-year-old female who presents emergency department complaining of nausea, vomiting, increased anxiety. States that she was having some social issues with her boyfriend or fianc few weeks ago has a history of depression anxiety and feels like that has been worse since that time. Has been having issues with eating and drinking and has been throwing up frequently. Denies any significant abdominal pain, chest pain, shortness of breath, fevers, chills, cough. Does states she accidentally tripped and fell a few days ago and did not lose consciousness. Is not on blood thinners. Has a bruise on her forehead. Is also complaining of a year of having a tingling, "fizzy sensation" that runs down the back of her neck and her head and she is extremely concerned that she may have a brain tumor. She has no other acute complaints at this time. Did get an [facility] this week but no new medications were initiated. Presents for further evaluation at this time. Does not believe she is . - Related Data Home Medications Medication Instructions Recorded Confirmed Sertraline [Zoloft] 200 mg PO HS 10/24/20 01/18/24 Dextroamphetamine/Amphetamine 10 mg PO DAILY 06/23/21 01/18/24 [Adderall Xr] cloNIDine HCL 0.1 mg PO HS 06/23/21 01/18/24 Albuterol Inhaler [Ventolin Hfa 2 puff INHALATION RT-Q6H PRN 08/31/22 01/18/24 Inhaler] traZODone HCL [Desyrel] 100 mg PO HS 08/31/22 01/18/24 busPIRone HCL [Buspar] 7.5 mg PO TID PRN 01/18/24 01/18/24 Allergies Allergy/AdvReac Type Severity Reaction Status Date / Time topiramate [From Topamax] Allergy Anaphylaxis Verified 01/18/24 08:16 cephalexin [From Keflex] AdvReac Nausea & Verified 01/18/24 08:16 Vomiting lamotrigine [From Lamictal] AdvReac lock jaw Verified 01/18/24 08:16 Review of Systems ROS Statement: Those systems with pertinent positive or pertinent negative responses have been documented in the HPI. Review of Systems: CONST: Denies fever EYES: Denies blurry vision ENT: Denies nasal congestion C/V: Denies Chest pain RESP: Denies shortness of breath GI: Denies abdominal pain : Denies dysuria SKIN: Denies rash. MSK: Denies joint pain. NEURO: Denies headache ROS Other: All systems not noted in ROS Statement are negative. Past Medical History Past Medical History: Thyroid Disorder Additional Past Medical History / Comment(s): stomach ulcer, back pain, thyroid nodule History of Any Multi-Drug Resistant Organisms: None Reported Past Surgical History: Tonsillectomy, Tubal Ligation Additional Past Surgical History / Comment(s): EGD, booked for thyroid biopsy 07/04/21 Additional Past Anesthesia/Blood Transfusion Reaction / Comment(s): difficult to wake up and elevated heart rate. No previous blood transfusion Past Psychological History: ADD/ADHD, Anxiety, Depression, Panic Disorder, PTSD Smoking Status: Current every day smoker Past Alcohol Use History: Occasional Past Drug Use History: Marijuana - Past Family History Mother Family Medical History: Thyroid Disorder Additional Family Medical History / Comment(s): Hypertension, hyperparathyroidism, posttraumatic stress disorder Father Family Medical History: No Reported History Additional Family Medical History / Comment(s): being evaluated for stroke and possible palpitations General Exam - General Exam Comments Initial Comments: General: Appears extremely anxious HEAD: Small healing bruise located over the forehead. Negative Russo sign. Negative raccoon eyes. EYES: PERRLA, EOMI, conjunctiva normal, no discharge. Pupils are 3 mm and equal bilaterally. ENT: Hearing grossly intact, normal oropharynx. Dry mucous membranes. RESPIRATORY: Clear breath sounds bilaterally. No wheezes, rales, or rhonchi. C/V: Regular rate and rhythm. S1 and S2 auscultated, peripheral pulses 2+ and intact throughout ABD: Abd is soft, nontender, nondistended EXT: Normal range of motion, no obvious deformity SKIN: No rashes or lesions observed on exposed skin. NEURO: Alert and oriented x 4. Cranial nerves II-XII intact. No focal sensory or strength deficits. GCS of 15. NIH is 0. Cerebellar function intact as evid ent by normal finger-nose testing and doea-ve-ehip testing. Limitations: no limitations Course Vital Signs 01/18/24 01/18/24 01/18/24 06:55 09:59 13:06 Temperature 98.0 F Pulse Rate 101 H 80 87 Respiratory 19 18 18 Rate Blood Pressure 148/87 118/87 135/96 O2 Sat by Pulse 95 97 96 Oximetry Medical Decision Making - Medical Decision Making Was pt. sent in by a medical professional or institution (, KARLA, FABRIC AND ACCESSORIES ESTIMATOR, urgent care, hospital, or senior living...) When possible be specific @ -No Did you speak to anyone other than the patient for history (EMS, parent, family, police, friend...)? What history was obtained from this source @ -No Did you review nursing and triage notes (agree or disagree)? Why? @ -I reviewed and agree with nursing and triage notes Were old charts reviewed (outside hosp., previous admission, EMS record, old EKG, old radiological studies, urgent care reports/EKG's, senior living records)? Report findings @ -No old charts were reviewed Differential Diagnosis (chest pain, altered mental status, abdominal pain women, abdominal pain men, vaginal bleeding, weakness, fever, dyspnea, syncope, hea dache, dizziness, GI bleed, back pain, seizure, CVA, palpatations, mental health, musculoskeletal)? @ -Nausea, vomiting, dehydration, electrolyte abnormality, anxiety, depression. This list is not all inclusive. EKG interpreted by me (3pts min.). @ -As above X-rays interpreted by me (1pt min.). @ -None done CT interpreted by me (1pt min.). @ -CT brain revealed no obvious acute intracranial process. U/S interpreted by me (1pt. min.). @ -None done What testing was considered but not performed or refused? (CT, X-rays, U/S, labs)? Why? @ -None What meds were considered but not given or refused? Why? @ -None Did you discuss the management of the patient with other professionals (reilly osborn i.e. KARLA Dejesus, FABRIC AND ACCESSORIES ESTIMATOR, lab, RT, psych nurse, addiction social worker, cold roll inspector, teacher, commercial loan officer, case managers)? Give summary @ -No Was smoking cessation discussed for >3mins.? @ -No Was critical care preformed (if so, how long)? @ -No Were there social determinants of health that impacted care today? How? (Homelessness, low income, unemployed, alcoholism, drug addiction, transportation, low edu. Level, literacy, decrease access to med. care, fci, rehab)? @ -No Was there de-escalation of care discussed even if they declined (Discuss DNR or withdrawal of care, Hospice)? DNR status @ -No What co-morbidities impacted this encounter? (DM, HTN, Smoking, COPD, CAD, Cancer, CVA, ARF, Chemo, Hep., AIDS, mental health diagnosis, sleep apnea, morbid obesity)? @ -Depression, anxiety Was patient admitted / discharged? Hospital course, mention meds given and route, prescriptions, significant lab abnormalities, going to OR and other pertinent info. @ -Patient presents emergency department with what appears to be an anxiety or panic attack. However patient has also been having nausea, vomiting for the last 1 to 2 weeks as well. We will obtain abdominal labs, as well as provide the patient with IV fluids, Zofran, Pepcid, and a small dose of Ativan. Screening EKG will also be obtained due to the persistent emesis. CT brain discussed with the patient as she is extremely concerned she may have a brain tumor and also had the recent head trauma. Therefore we will obtain CT brain at this time. Patient was in agreement this plan. Vital signs other than mild tachycardia are within acceptable limits. Tachycardia likely secondary to anxiety. CT brain showed no obvious acute intracranial process. Laboratory studies are unremarkable. Urinalysis is contaminated. Alcohol level is undetectable. On reevaluation, patient is feeling improved. She would like to talk with psych social work. EPS was notified. Pending EPS evaluation. Patient is medically cleared for EPS evaluation. EPS time evaluated the patient determined that she does not meet inpatient criteria. Patient stable for discharge home. Safety plan given to the patient. She was in agreement this plan. I instructed the patient to follow up with their PCP in the next 1-3 days. I explained that the patient should return to the emergency department if they experience any worsening symptoms. Strict return precautions were discussed with the patient. The patient expressed understanding of these instructions. I answered all questions that the patient had. The patient was discharged home in [good] condition with their prescriptions and follow up information. Undiagnosed new problem with uncertain prognosis? @ -No Drug Therapy requiring intensive monitoring for toxicity (Heparin, Nitro, Insulin, Cardizem)? @ -No Were any procedures done? @ -No Diagnosis/symptom? @ -Nausea and vomiting, anxiety Acute, or Chronic, or Acute on Chronic? @ -Acute Uncomplicated (without systemic symptoms) or Complicated (systemic symptoms)? @ -Complicated Side effects of treatment? @ -None Exacerbation, Progression, or Severe Exacerbation] @ -No Poses a threat to life or bodily function? @ -Unlikely - Lab Data Result diagrams: 01/18/24 08:17 01/18/24 09:05 Lab Results 01/18/24 01/18/24 01/18/24 Range/Units 08:17 08:17 08:17 WBC 9.7 (3.8-10.6) k/uL RBC 4.74 (3.80-5.40) m/uL Hgb 13.0 (11.4-16.0) gm/dL Hct 39.8 (34.0-46.0) % MCV 84.0 (80.0-100.0) fL MCH 27.4 (25.0-35.0) pg MCHC 32.6 (31.0-37.0) g/dL RDW 15.5 (11.5-15.5) % Plt Count 224 (150-450) k/uL MPV 7.6 Neutrophils % 78 % Lymphocytes % 15 % Monocytes % 5 % Eosinophils % 1 % Basophils % 0 % Neutrophils # 7.6 (1.3-7.7) k/uL Lymphocytes # 1.5 (1.0-4.8) k/uL Monocytes # 0.4 (0-1.0) k/uL Eosinophils # 0.1 (0-0.7) k/uL Basophils # 0.0 (0-0.2) k/uL Sodium (137-145) mmol/L Potassium (3.5-5.1) mmol/L Chloride (98-107) mmol/L Carbon Dioxide (22-30) mmol/L Anion Gap mmol/L BUN (7-17) mg/dL Creatinine (0.52-1.04) mg/dL Est GFR (CKD-EPI)AfAm (>60 ml/min/1.73 sqM) Est GFR (CKD-EPI)NonAf (>60 ml/min/1.73 sqM) Glucose (74-99) mg/dL Calcium (8.4-10.2) mg/dL Magnesium (1.6-2.3) mg/dL Total Bilirubin (0.2-1.3) mg/dL AST (14-36) U/L ALT (4-34) U/L Alkaline Phosphatase (38-126) U/L Total Protein (6.3-8.2) g/dL Albumin (3.5-5.0) g/dL Lipase (23-300) U/L Urine Color Yellow Urine Appearance Cloudy H (Clear) Urine pH 6.5 (5.0-8.0) Ur Specific [place] 1.029 (1.001-1.035) Urine Protein 1+ H (Negative) Urine Glucose (UA) Negative (Negative) Urine Ketones 1+ H (Negative) Urine Blood Trace H (Negative) Urine Nitrite Negative (Negative) Urine Bilirubin 1+ H (Negative) Urine Urobilinogen 3.0 (<2.0) mg/dL Ur Leukocyte Esterase Trace H (Negative) Urine RBC 3 (0-5) /hpf Urine WBC 6 H (0-5) /hpf Ur Squamous Epith Cells 22 H (0-4) /hpf Urine Mucus Many H (None) /hpf Urine HCG, Qual Not Detected (Not Detectd) Serum Alcohol mg/dL Influenza Type A (PCR) (Not Detectd) Influenza Type B (PCR) (Not Detectd) RSV (PCR) (Not Detectd) SARS-CoV-2 (PCR) (Not Detectd) 01/18/24 01/18/24 Range/Units 08:17 09:05 WBC (3.8-10.6) k/uL RBC (3.80-5.40) m/uL Hgb (11.4-16.0) gm/dL Hct (34.0-46.0) % MCV (80.0-100.0) fL MCH (25.0-35.0) pg MCHC (31.0-37.0) g/dL RDW (11.5-15.5) % Plt Count (150-450) k/uL MPV Neutrophils % % Lymphocytes % % Monocytes % % Eosinophils % % Basophils % % Neutrophils # (1.3-7.7) k/uL Lymphocytes # (1.0-4.8) k/uL Monocytes # (0-1.0) k/uL Eosinophils # (0-0.7) k/uL Basophils # (0-0.2) k/uL Sodium 140 (137-145) mmol/L Potassium 3.6 (3.5-5.1) mmol/L Chloride 110 H (98-107) mmol/L Carbon Dioxide 22 (22-30) mmol/L Anion Gap 8 mmol/L BUN 5 L (7-17) mg/dL Creatinine 0.61 (0.52-1.04) mg/dL Est GFR (CKD-EPI)AfAm >90 (>60 ml/min/1.73 sqM) Est GFR (CKD-EPI)NonAf >90 (>60 ml/min/1.73 sqM) Glucose 105 H (74-99) mg/dL Calcium 8.8 (8.4-10.2) mg/dL Magnesium 1.8 (1.6-2.3) mg/dL Total Bilirubin 0.4 (0.2-1.3) mg/dL AST 20 (14-36) U/L ALT 13 (4-34) U/L Alkaline Phosphatase 63 (38-126) U/L Total Protein 6.8 (6.3-8.2) g/dL Albumin 3.9 (3.5-5.0) g/dL Lipase 62 (23-300) U/L Urine Color Urine Appearance (Clear) Urine pH (5.0-8.0) Ur Specific [place] (1.001-1.035) Urine Protein (Negative) Urine Glucose (UA) (Negative) Urine Ketones (Negative) Urine Blood (Negative) Urine Nitrite (Negative) Urine Bilirubin (Negative) Urine Urobilinogen (<2.0) mg/dL Ur Leukocyte Esterase (Negative) Urine RBC (0-5) /hpf Urine WBC (0-5) /hpf Ur Squamous Epith Cells (0-4) /hpf Urine Mucus (None) /hpf Urine HCG, Qual (Not Detectd) Serum Alcohol <10 mg/dL Influenza Type A (PCR) Not Detected (Not Detectd) Influenza Type B (PCR) Not Detected (Not Detectd) RSV (PCR) Not Detected (Not Detectd) SARS-CoV-2 (PCR) Not Detected (Not Detectd) - EKG Data -: EKG Interpreted by Me EKG Comments: 12-lead Electrocardiogram Interpretation Note EKG was reviewed and interpreted by myself. 12-lead ECG performed at 0744 is interpreted by me as revealing normal sinus rhythm with incomplete right bundle branch block. At a rate of 92 beats per minute. [place] is normal. HI interval is 144 ms, QRS duration is 105 ms, QTc is 431 ms. Isolated T wave inversion in lead V3.. There were no acute ST or T wave abnormalities to suggest myocardial ischemia or injury. R wave progression across the precordium was satisfactory. By my interpretation this EKG is non-diagnostic for acute ischemia. Disposition Clinical Impression: Anxiety, Nausea & vomiting Disposition: HOME SELF-CARE Condition: Good Instructions (If sedation given, give patient instructions): Acute Nausea and Vomiting (ED) Additional Instructions: follow safety plan Is patient prescribed a controlled substance at d/c from ED?: No Referrals: Aleksander Capone MD [Primary Care Provider] - 1-2 days Time of Disposition: 13:22
[2024-01-18] MEDS: SODIUM CHLORIDE 0.9% 2,000 ML IV STA (08:09)
[2024-01-18] MEDS: ONDANSETRON 4 MG/2 ML VIAL IVP STA (08:11)
[2024-01-18] MEDS: FAMOTIDINE 20 MG/2 ML VIAL IV STA (08:13)
[2024-01-18] MEDS: LORazepam 2 MG/ML INJ IV STA ×2 (08:15→10:19)
[2024-01-18 08:30] LABS: Basophils % (A) 0 %; Eosinophils # (A) 0.1 k/uL (0-0.7); Eosinophils % (A) 1 %; HCT 39.8 % (34.0-46.0); Lymphocytes # (A) 1.5 k/uL (1.0-4.8); Lymphocytes % (A) 15 %; MCH 27.4 pg (25.0-35.0); MCHC 32.6 g/dL (31.0-37.0); Mean Platelet Volume 7.6; Monocytes # (A) 0.4 k/uL (0-1.0); Monocytes % (A) 5 %; Neutrophils # (A) 7.6 k/uL (1.3-7.7); Neutrophils % (A) 78 %; Platelet Count 224 k/uL (150-450); RBC 4.74 m/uL (3.80-5.40); RDW 15.5 % (11.5-15.5); WBC 9.7 k/uL (3.8-10.6)
[2024-01-18 08:46] LABS: Appearance,Urine Cloudy (Clear); Bilirubin,Urine 1+ (Negative); Blood,Urine Trace (Negative); Color,Urine Yellow; Glucose,Urine (UA) Negative (Negative); Ketones,Urine 1+ (Negative); Leukocyte Esterase,Urine Trace (Negative); Mucus,Urine Many /hpf; Nitrite,Urine Negative (Negative); PH, Urine 6.5 (5.0-8.0); Protein,Urine 1+ (Negative); RBC,Urine 3 /hpf (0-5); Specific Gravity,Urine 1.029 (1.001-1.035); Squamous Epithelial Cell,Urine 22 /hpf (0-4); WBC,Urine 6 /hpf (0-5)
--- NOTE | 2024-01-18 09:18 | CT ---
EXAMINATION TYPE: CT brain wo con DATE OF EXAM: 01/18/2024 COMPARISON: None HISTORY: ELIAS CT DLP: 1094.[address] of the brain was performed. The ventricles, basal cisterns and sulci overlying the cerebral convexities demonstrate a normal appe arance. There is no evidence for intracranial hemorrhage or sulcal effacement. No mass effects are seen. Osseous calvarium is intact. If symptoms persist consider MRI as clinically warranted. IMPRESSION: 1. No acute intracranial process is seen at this time.
[2024-01-18 09:44] LABS: ALT 13 U/L (4-34); AST 20 U/L (14-36); African American GFR (CKD) >90 (>60 ml/min/1.73 sqM); Albumin 3.9 g/dL (3.5-5.0); Alcohol <10 mg/dL; Alkaline Phosphatase 63 U/L (38-126); Anion Gap 8 mmol/L; Blood Urea Nitrogen 5 mg/dL (7-17); Calcium 8.8 mg/dL (8.4-10.2); Carbon Dioxide 22 mmol/L (22-30); Chloride 110 mmol/L (98-107); Glucose 105 mg/dL (74-99); Lipase 62 U/L (23-300); Magnesium 1.8 mg/dL (1.6-2.3); Non-African American GFR(CKD) >90 (>60 ml/min/1.73 sqM); Potassium 3.6 mmol/L (3.5-5.1); Sodium 140 mmol/L (137-145); Total Bilirubin 0.4 mg/dL (0.2-1.3); Total Protein 6.8 g/dL (6.3-8.2)
[2024-01-18 10:03] VITALS: RESP 18
[2024-01-18 13:08] VITALS: BP 135/96; PULSE 87
== END 2024-01-18 13:40 | disposition home or self-care (01) ==
LOC: EC 06:50
CPT/HCPCS: 36415; 70450; 80053; 80320; 81001; 81025; 82075; 83690; 83735; 85025; 87636; 93005; 96361; 96374; 96375; 96376; 99285

== ENCOUNTER 2024-01-20 07:11 | Emergency (ER) | payer OTHER ==
[2024-01-20] MEDS: SODIUM CHLORIDE 0.9% 1,000 ML IV STA (08:26)
--- NOTE | 2024-01-20 08:35 | ED ---
Anxiety HPI - General Chief Complaint: Anxiety Stated Complaint: NVD Time Seen by Provider: 01/20/24 07:51 Source: patient, RN notes reviewed Mode of arrival: wheelchair Limitations: no limitations - History of Present Illness Initial Comments: This is a 33-year-old female who presents to the emergency department for anxiety, nausea, and vomiting. States that about a week ago she found out her fianc had been cheating on her after they had moved in together and she gave up a lot of her life for him. She also trusted him with her son and he started seeing him as a father figure. Since then she has been incredibly anxious and tearful. She has been vomiting persistently and unable to get it to stop. Denies any suicidal or homicidal ideations. She was evaluated here a few days ago and treated with Zofran and Ativan, but only had temporary improvement was then discharged home. She spoke with EPS at that time, but did not find it beneficial. MD Complaint: anxiety - Related Data Home Medications: Home Medications Medication Instructions Recorded Confirmed Sertraline [Zoloft] 200 mg PO HS 10/24/20 01/18/24 Dextroamphetamine/Amphetamine 10 mg PO DAILY 06/23/21 01/18/24 [Adderall Xr] cloNIDine HCL 0.1 mg PO HS 06/23/21 01/18/24 Albuterol Inhaler [Ventolin Hfa 2 puff INHALATION RT-Q6H PRN 08/31/22 01/18/24 Inhaler] traZODone HCL [Desyrel] 100 mg PO HS 08/31/22 01/18/24 busPIRone HCL [Buspar] 7.5 mg PO TID PRN 01/18/24 01/18/24 Previous Rx's Medication Instructions Recorded Ondansetron Odt [Zofran Odt] 4 mg PO Q8HR PRN #30 tab 01/20/24 Prochlorperazine [Compazine] 10 mg PO Q6H PRN #30 tab 01/20/24 clonazePAM [KlonoPIN] 0.5 mg PO TID PRN 3 Days #9 tablet 01/20/24 Allergies/Adverse Reactions: Allergies Allergy/AdvReac Type Severity Reaction Status Date / Time topiramate [From Topamax] Allergy Anaphylaxis Verified 01/20/24 07:47 cephalexin [From Keflex] AdvReac Nausea & Verified 01/20/24 07:47 Vomiting lamotrigine [From Lamictal] AdvReac lock jaw Verified 01/20/24 07:47 Review of Systems ROS Statement: Those systems with pertinent positive or pertinent negative responses have been documented in the HPI. ROS Other: All systems not noted in ROS Statement are negative. Past Medical History Past Medical History: Thyroid Disorder Additional Past Medical History / Comment(s): stomach ulcer, back pain, thyroid nodule History of Any Multi-Drug Resistant Organisms: None Reported Past Surgical History: Tonsillectomy, Tubal Ligation Additional Past Surgical History / Comment(s): EGD, booked for thyroid biopsy 07/04/21 Additional Past Anesthesia/Blood Transfusion Reaction / Comment(s): difficult to wake up and elevated heart rate. No previous blood transfusion Past Psychological History: ADD/ADHD, Anxiety, Depression, Panic Disorder, PTSD Smoking Status: Current every day smoker Past Alcohol Use History: Occasional Past Drug Use History: Marijuana - Past Family History Mother Family Medical History: Thyroid Disorder Additional Family Medical History / Comment(s): Hypertension, hyperparathyroidism, posttraumatic stress disorder Father Family Medical History: No Reported History Additional Family Medical History / Comment(s): being evaluated for stroke and possible palpitations General Exam Limitations: no limitations General appearance: alert, anxious Head exam: Present: atraumatic, normocephalic, normal inspection Respiratory exam: Present: normal lung sounds bilaterally. Absent: respiratory distress, wheezes, rales, rhonchi, stridor Cardiovascular Exam: Present: regular rate, normal rhythm, normal heart sounds. Absent: systolic murmur, diastolic murmur, rubs, gallop, clicks GI/Abdominal exam: Present: soft, normal bowel sounds. Absent: distended, tenderness, guarding, rebound, rigid Neurological exam: Present: alert, oriented X3, CN II-XII intact Psychiatric exam: Present: depressed, anxious. Absent: homicidal ideation, suicidal ideation Skin exam: Present: warm, dry, intact, normal color. Absent: rash Course Vital Signs 01/20/24 01/20/24 07:44 10:29 Temperature 98.0 F 98.1 F Pulse Rate 86 87 Respiratory 20 18 Rate Blood Pressure 139/96 101/70 O2 Sat by Pulse 96 97 Oximetry Medical Decision Making - Medical Decision Making This is a 33 year old female who presents to the emergency department for anxiety and nausea. Was pt. sent in by a medical professional or institution? @ -No Did you speak to anyone other than the patient for history? @ -No Did you review nursing and triage notes? @ -Yes, and I agree, it is accurate with regards to the patient's symptoms. Were old charts reviewed? @ -No Differential Diagnosis? @ -Differential Nausea and Vomiting: Gastroenteritis, cholecystitis, appendicitis, pancreatitis, migraine, benign positional vertigo, food borne illness, pyelonephritis, irritable bowel syndrome, influenza, Covid, GERD, incarcerated hernia, intestinal obstruction, this is not meant to be an all-inclusive list. EKG interpreted by me (3pts min.)? @ -Not obtained X-rays interpreted by me (1pt min.)? @ -Not obtained CT interpreted by me (1pt min.)? @ -Not obtained U/S interpreted by me (1pt. min.)? @ -Not obtained What testing was considered but not performed? (CT, X-rays, U/S, labs)? Why? @ -None What meds were considered but not given? Why? @ -None Did you discuss the management of the patient with other professionals? @ -No Did you reconcile home meds? @ -No Was smoking cessation discussed for >3mins.? @ -No Was critical care preformed (if so, how long)? @ -No Were there social determinants of health that impacted care today? How? (Ho melessness, low income, unemployed, alcoholism, drug addiction, transportation, low edu. Level, literacy, decrease access to med. care, fpc, rehab)? @ -No Was there de-escalation of care discussed even if they declined? (Discuss DNR or withdrawal of care, Hospice)? @ -No What co-morbidities impacted this encounter? (DM, HTN, Smoking, COPD, CAD, Cancer, CVA, Hep., AIDS, mental health diagnosis, sleep apnea, morbid obesity)? @ -None Was patient admitted / discharged? @ -Discharged. Lab work unremarkable. Symptoms well-controlled in the emergency department and she was tolerating oral intake. Her anxiety also improved dramatically. Prescription for Zofran and Compazine provided for management of her nausea. She was also given a a prescription for a 3-day course of Klonopin to be used sparingly when needed for severe bouts of anxiety given her situation. Otherwise advised follow-up with her primary care provider for reevaluation. Patient discharged home in stable condition. Case discussed with ED attending Dr. Whatley. Return precautions reviewed in depth, the patient is instructed to return to the emergency department with any new, worsening, or concerning symptoms. Patient verbalized understanding. Undiagnosed new problem with uncertain prognosis? @ -None Drug Therapy requiring intensive monitoring for toxicity (Heparin, Nitro, Insulin, Cardizem)? @ -None Were any procedures done? @ -None Diagnosis/symptom? @ -Situational anxiety, panic attack, nausea and vomiting Acute, or Chronic, or Acute on Chronic? @ -Acute Uncomplicated (without systemic symptoms) or Complicated (systemic symptoms)? @ -Complicated Side effects of treatment? @ -None Exacerbation, Progression, or Severe Exacerbation] @ -Not applicable Poses a threat to life or bodily function? @ -Yes, her symptoms are limiting her ability to function - Lab Data Result diagrams: 01/20/24 08:27 01/20/24 08:27 Lab Results 01/20/24 01/20/24 Range/Units 08:27 08:27 WBC 6.8 (3.8-10.6) k/uL RBC 4.46 (3.80-5.40) m/uL Hgb 12.4 (11.4-16.0) gm/dL Hct 38.0 (34.0-46.0) % MCV 85.3 (80.0-100.0) fL MCH 27.8 (25.0-35.0) pg MCHC 32.6 (31.0-37.0) g/dL RDW 15.6 H (11.5-15.5) % Plt Count 214 (150-450) k/uL MPV 7.7 Neutrophils % 70 % Lymphocytes % 22 % Monocytes % 5 % Eosinophils % 1 % Basophils % 0 % Neutrophils # 4.7 (1.3-7.7) k/uL Lymphocytes # 1.5 (1.0-4.8) k/uL Monocytes # 0.3 (0-1.0) k/uL Eosinophils # 0.1 (0-0.7) k/uL Basophils # 0.0 (0-0.2) k/uL Sodium 141 (137-145) mmol/L Potassium 4.1 (3.5-5.1) mmol/L Chloride 110 H (98-107) mmol/L Carbon Dioxide 24 (22-30) mmol/L Anion Gap 7 mmol/L BUN 4 L (7-17) mg/dL Creatinine 0.53 (0.52-1.04) mg/dL Est GFR (CKD-EPI)AfAm >90 (>60 ml/min/1.73 sqM) Est GFR (CKD-EPI)NonAf >90 (>60 ml/min/1.73 sqM) Glucose 108 H (74-99) mg/dL Calcium 9.2 (8.4-10.2) mg/dL Phosphorus 2.1 L (2.5-4.5) mg/dL Magnesium 1.9 (1.6-2.3) mg/dL Total Bilirubin 0.6 (0.2-1.3) mg/dL AST 35 (14-36) U/L ALT 14 (4-34) U/L Alkaline Phosphatase 49 (38-126) U/L Total Protein 6.8 (6.3-8.2) g/dL Albumin 4.0 (3.5-5.0) g/dL HCG, Qual Not Detected Disposition Clinical Impression: Acute anxiety, Situational anxiety, Nausea & vomiting Disposition: HOME SELF-CARE Instructions (If sedation given, give patient instructions): Generalized Anxiety Disorder (ED), Panic Attack (ED) Additional Instructions: Return to the emergency department with any new, worsening, or concerning symptoms. Take the Zofran up to every 8 hours as needed for nausea and vomiting. If that is not effective you can take the Compazine up to every 6 hours. Take the Klonopin sparingly when your anxiety is the most severe. Follow up with your primary care provider in 1-2 days. Prescriptions: Prochlorperazine [Compazine] 10 mg PO Q6H PRN #30 tab PRN Reason: Nausea And Vomiting clonazePAM [KlonoPIN] 0.5 mg PO TID PRN 3 Days #9 tablet PRN Reason: Anxiety Ondansetron Odt [Zofran Odt] 4 mg PO Q8HR PRN #30 tab PRN Reason: Nausea And Vomiting Is patient prescribed a controlled substance at d/c from ED?: Yes When asked, does pt state using other controlled substances?: Yes If prescribed controlled substance>3 days was MAPS reviewed?: Prescribed <3 Days Referrals: Aleksander Capone MD [Primary Care Provider] - 1-2 days Time of Disposition: 10:20
[2024-01-20 08:36] LABS: Basophils % (A) 0 %; Eosinophils # (A) 0.1 k/uL (0-0.7); Eosinophils % (A) 1 %; HGB 12.4 gm/dL (11.4-16.0); Lymphocytes # (A) 1.5 k/uL (1.0-4.8); Lymphocytes % (A) 22 %; MCH 27.8 pg (25.0-35.0); MCHC 32.6 g/dL (31.0-37.0); MCV 85.3 fL (80.0-100.0); Mean Platelet Volume 7.7; Monocytes # (A) 0.3 k/uL (0-1.0); Monocytes % (A) 5 %; Neutrophils # (A) 4.7 k/uL (1.3-7.7); Neutrophils % (A) 70 %; Platelet Count 214 k/uL (150-450); RBC 4.46 m/uL (3.80-5.40); RDW 15.6 % (11.5-15.5); WBC 6.8 k/uL (3.8-10.6)
[2024-01-20] MEDS: IBUPROFEN 800 MG TAB PO STA (08:38)
[2024-01-20 08:58] LABS: HCG,Qualitative Serum Not Detected
[2024-01-20 08:59] LABS: ALT 14 U/L (4-34); African American GFR (CKD) >90 (>60 ml/min/1.73 sqM); Anion Gap 7 mmol/L; Blood Urea Nitrogen 4 mg/dL (7-17); Calcium 9.2 mg/dL (8.4-10.2); Carbon Dioxide 24 mmol/L (22-30); Chloride 110 mmol/L (98-107); Glucose 108 mg/dL (74-99); Non-African American GFR(CKD) >90 (>60 ml/min/1.73 sqM); Sodium 141 mmol/L (137-145); Total Bilirubin 0.6 mg/dL (0.2-1.3); Total Protein 6.8 g/dL (6.3-8.2)
[2024-01-20] MEDS: LORazepam 2 MG/ML INJ IV STA ×2 (09:06→10:42)
[2024-01-20] MEDS: ONDANSETRON 4 MG/2 ML VIAL IVP STA (09:08)
[2024-01-20] MEDS: PROCHLORPERAZINE INJ 10 MG/2 ML VIAL IVP STA (09:10)
[2024-01-20 10:04] LABS: AST 35 U/L (14-36); Alkaline Phosphatase 49 U/L (38-126); Magnesium 1.9 mg/dL (1.6-2.3); Phosphorus 2.1 mg/dL (2.5-4.5); Potassium 4.1 mmol/L (3.5-5.1)
[2024-01-20 10:31] VITALS: BP 101/70; PULSE 87; RESP 18; TEMP 98.1
== END 2024-01-20 10:48 | disposition home or self-care (01) ==
LOC: EC 07:11
CPT/HCPCS: 36415; 80053; 83735; 84100; 84703; 85025; 96365; 96375; 99283

== ENCOUNTER 2024-01-22 07:34 | Emergency (ER) | payer OTHER ==
[2024-01-22 07:42] VITALS: BP 118/83; PULSE 86; RESP 20; TEMP 97.5
--- NOTE | 2024-01-22 08:01 | ED ---
General Adult HPI - General Chief complaint: Psychiatric Symptoms Stated complaint: Anxiety Time Seen by Provider: 01/22/24 07:40 Source: patient, RN notes reviewed, old records reviewed Mode of arrival: ambulatory Limitations: no limitations - History of Present Illness Initial comments: This is a 33-year-old female who presents to the emergency department with a past medical history significant for PTSD depression and anxiety. Patient states she is on multiple medications and she was just prescribed Klonopin the other day because of anxiety. Patient states she has not taken her Klonopin today at all. Patient states she is very anxious and cannot stop crying she is not sleeping or eating well. Patient states she has not gotten into see Dr. Lopez. Patient states she does not want to be admitted to the hospital because she has a 9-year-old son. Patient states she thinks it would be nice if she fell asleep and did not wake up but she is not suicidal she would never kill herself because she has to take care of her son. Patient also states she has some urinary frequency so she would like her urine checked. - Related Data Home Medications Medication Instructions Recorded Confirmed Sertraline [Zoloft] 200 mg PO HS 10/24/20 01/18/24 Dextroamphetamine/Amphetamine 10 mg PO DAILY 06/23/21 01/18/24 [Adderall Xr] cloNIDine HCL 0.1 mg PO HS 06/23/21 01/18/24 Albuterol Inhaler [Ventolin Hfa 2 puff INHALATION RT-Q6H PRN 08/31/22 01/18/24 Inhaler] traZODone HCL [Desyrel] 100 mg PO HS 08/31/22 01/18/24 busPIRone HCL [Buspar] 7.5 mg PO TID PRN 01/18/24 01/18/24 Previous Rx's Medication Instructions Recorded Ondansetron Odt [Zofran Odt] 4 mg PO Q8HR PRN #30 tab 01/20/24 Prochlorperazine [Compazine] 10 mg PO Q6H PRN #30 tab 01/20/24 clonazePAM [KlonoPIN] 0.5 mg PO TID PRN 3 Days #9 tablet 01/20/24 Allergies Allergy/AdvReac Type Severity Reaction Status Date / Time topiramate [From Topamax] Allergy Anaphylaxis Verified 01/22/24 07:42 cephalexin [From Keflex] AdvReac Nausea & Verified 01/22/24 07:42 Vomiting lamotrigine [From Lamictal] AdvReac lock jaw Verified 01/22/24 07:42 Review of Systems ROS Statement: Those systems with pertinent positive or pertinent negative responses have been documented in the HPI. ROS Other: All systems not noted in ROS Statement are negative. Past Medical History Past Medical History: Thyroid Disorder Additional Past Medical History / Comment(s): stomach ulcer, back pain, thyroid nodule History of Any Multi-Drug Resistant Organisms: None Reported Past Surgical History: Tonsillectomy, Tubal Ligation Additional Past Surgical History / Comment(s): EGD, booked for thyroid biopsy 07/04/21 Additional Past Anesthesia/Blood Transfusion Reaction / Comment(s): difficult to wake up and elevated heart rate. No previous blood transfusion Past Psychological History: ADD/ADHD, Anxiety, Depression, Panic Disorder, PTSD Smoking Status: Current every day smoker Past Alcohol Use History: Occasional Past Drug Use History: Marijuana - Past Family History Mother Family Medical History: Thyroid Disorder Additional Family Medical History / Comment(s): Hypertension, hyperparathyroidism, posttraumatic stress disorder Father Family Medical History: No Reported History Additional Family Medical History / Comment(s): being evaluated for stroke and possible palpitations General Exam - General Exam Comments Initial Comments: GENERAL: Patient is well-developed and well-nourished. Patient is nontoxic and well- hydrated and is in no acute distress. ENT Neck is soft and supple. No significant lymphadenopathy is noted. Oropharynx is clear. Moist mucous membranes. Neck has full range of motion without eliciting any pain. EYES: The sclera were anicteric and conjunctiva were pink and moist. Extraocular movements were intact and pupils were equal round and reactive to light. Eyelids were unremarkable. PULMONARY: Unlabored respirations. Good breath sounds bilaterally. No audible rales rhonchi or wheezing was noted. CARDIOVASCULAR: There is a regular rate and rhythm without any murmurs gallops or rubs. ABDOMEN: Soft and nontender with normal bowel sounds. SKIN: Skin is clear with no lesions or rashes and otherwise unremarkable. NEUROLOGIC: Patient is alert and oriented x3. Cranial nerves II through XII are grossly intact. Motor and sensory are also intact. Normal speech, volume and content. Symmetrical smile. MUSCULOSKELETAL: Normal extremities with adequate strength and full range of motion. PSYCHIATRIC: Patient is tearful and states she is very depressed but does not want to kill herself she and says she would never do that because she has a 9-year-old son. Limitations: no limitations Course Vital Signs 01/22/24 07:39 Temperature 97.5 F L Pulse Rate 86 Respiratory 20 Rate Blood Pressure 118/83 O2 Sat by Pulse 95 Oximetry Medical Decision Making - Medical Decision Making Was pt. sent in by a medical professional or institution (, [facility], [employer], urgent care, hospital, or custodial...) When possible be specific @ -No Did you speak to anyone other than the patient for history (EMS, parent, family, police, friend...)? What history was obtained from this source @ -No Did you review nursing and triage notes (agree or disagree)? Why? @ -I reviewed and agree with nursing and triage notes Were old charts reviewed (outside hosp., previous admission, EMS record, old EKG, old radiological studies, urgent care reports/EKG's, custodial records)? Report findings @ -No old charts were reviewed Differential Diagnosis? @ -Differential Mental Health Depression, anxiety, bipolar, psychosis, schizophrenia, borderline personality, situational depression, adjustment disorder, behavioral disorder, brain tumor, malingering, substance abuse, encephalopathy, medication reaction, dementia, hypothyroidism, degenerative neurologic disorder, lupus.... This is not meant to be all-inclusive list EKG interpreted by me (3pts min.). @ -As above X-rays interpreted by me (1pt min.). @ -None done CT interpreted by me (1pt min.). @ -None done U/S interpreted by me (1pt. min.). @ -None done What testing was considered but not performed or refused? (CT, X-rays, U/S, labs)? Why? @ -None What meds were considered but not given or refused? Why? @ -None Did you discuss the management of the patient with other professionals (professionals i.e. [facility] Dejesus, [employer], lab, RT, psych nurse, social media content manager, bus info consultant, teacher, medical information officer, caseworker)? Give summary @ -I spoke with Dr. Capone and he agreed to see the patient today Was smoking cessation discussed for >3mins.? @ -No Was critical care preformed (if so, how long)? @ -No Were there social determinants of health that impacted care today? How? (Homelessness, low income, unemployed, alcoholism, drug addiction, transportation, low edu. Level, literacy, decrease access to med. care, senior living, rehab)? @ -No Was there de-escalation of care discussed even if they declined (Discuss DNR or withdrawal of care, Hospice)? DNR status @ -No What co-morbidities impacted this encounter? (DM, HTN, Smoking, COPD, CAD, Cancer, CVA, ARF, Chemo, Hep., AIDS, mental health diagnosis, sleep apnea, morbid obesity)? @ -None Was patient admitted / discharged? Hospital course, mention meds given and route, prescriptions, significant lab abnormalities, going to OR and other pertinent info. @ -Patient was given 2 mg of Ativan and it calmed her down and she was no longer crying she was able to talk and be very reasonable she agreed to go see Dr. Capone today. And patient continued deny any suicidal or homicidal ideations. Undiagnosed new problem with uncertain prognosis? @ -No Drug Therapy requiring intensive monitoring for toxicity (Heparin, Nitro, Insulin, Cardizem)? @ -No Were any procedures done? @ -No Diagnosis/symptom? @ -Anxiety Acute, or Chronic, or Acute on Chronic? @ -Acute Uncomplicated (without systemic symptoms) or Complicated (systemic symptoms)? @ -Complicated Side effects of treatment? @ -No Exacerbation, Progression, or Severe Exacerbation? @ -No Poses a threat to life or bodily function? How? (Chest pain, [place], [place], pneumonia, PE, COPD, DKA, ARF, appy, cholecystitis, CVA, Diverticulitis, Homicidal, Suicidal, threat to staff... and all critical care pts) @ -No - Lab Data Lab Results 01/22/24 Range/Units 08:11 Urine Color Yellow Urine Appearance Cloudy H (Clear) Urine pH 6.0 (5.0-8.0) Ur Specific [place] 1.012 (1.001-1.035) Urine Protein Trace H (Negative) Urine Glucose (UA) Negative (Negative) Urine Ketones Negative (Negative) Urine Blood Large H (Negative) Urine Nitrite Negative (Negative) Urine Bilirubin Negative (Negative) Urine Urobilinogen <2.0 (<2.0) mg/dL Ur Leukocyte Esterase Small H (Negative) Urine RBC >182 H (0-5) /hpf Urine WBC 4 (0-5) /hpf Ur Squamous Epith Cells 2 (0-4) /hpf Urine Bacteria Rare H (None) /hpf Urine Mucus Many H (None) /hpf Disposition Clinical Impression: Acute anxiety Disposition: HOME SELF-CARE Condition: Good Instructions (If sedation given, give patient instructions): Anxiety (ED) Is patient prescribed a controlled substance at d/c from ED?: No Referrals: Aleksander Capone MD [Primary Care Provider] - 1-2 days Time of Disposition: 10:21
[2024-01-22] MEDS: LORazepam 1 MG TAB PO STA (08:03)
[2024-01-22 08:46] LABS: Appearance,Urine Cloudy (Clear); Bacteria,Urine Rare /hpf; Bilirubin,Urine Negative (Negative); Blood,Urine Large (Negative); Color,Urine Yellow; Glucose,Urine (UA) Negative (Negative); Ketones,Urine Negative (Negative); Leukocyte Esterase,Urine Small (Negative); Mucus,Urine Many /hpf; Nitrite,Urine Negative (Negative); Protein,Urine Trace (Negative); RBC,Urine >182 /hpf (0-5); Specific Gravity,Urine 1.012 (1.001-1.035); Squamous Epithelial Cell,Urine 2 /hpf (0-4); Urobilinogen,Urine <2.0 mg/dL (<2.0); WBC,Urine 4 /hpf (0-5)
== END 2024-01-22 10:42 | disposition home or self-care (01) ==
LOC: EC 07:34
CPT/HCPCS: 81001; 82075; 99285

== ENCOUNTER 2024-10-21 18:13 | Emergency (ER) | payer OTHER ==
--- NOTE | 2024-10-21 18:26 | ED ---
Upper Extremity HPI - General Source: patient <Michelle Mock - Last Filed: 10/21/24 18:24> - General Source: patient, RN notes reviewed Mode of arrival: ambulatory Limitations: no limitations - History of Present Illness MD Complaint: Injury to:: right, hand Onset/Timin -: minutes(s) Other Extremity Injury: Hand: Right Other Injuries: none Place: home Severity scale (1-10): 8 <Terrence Rincon - Last Filed: 10/21/24 23:50> - General Stated Complaint: R hand lac Time Seen by Provider: 10/21/24 18:24 - History of Present Illness Initial Comments: Quick [id number] female presenting for right hand laceration prior to arrival. States she was trying to close a window when it shattered, resulting in multiple cuts in the palm of her hand. No other injuries. Last tetanus unknown. (Michelle Mock) - Related Data Home Medications Medication Instructions Recorded Confirmed Sertraline [Zoloft] 200 mg PO HS 10/24/20 01/18/24 Dextroamphetamine/Amphetamine 10 mg PO DAILY 06/23/21 01/18/24 [Adderall Xr] cloNIDine HCL 0.1 mg PO HS 06/23/21 01/18/24 Albuterol Inhaler [Ventolin Hfa 2 puff INHALATION RT-Q6H PRN 08/31/22 01/18/24 Inhaler] traZODone HCL [Desyrel] 100 mg PO HS 08/31/22 01/18/24 busPIRone HCL [Buspar] 7.5 mg PO TID PRN 01/18/24 01/18/24 Previous Rx's Medication Instructions Recorded Ondansetron Odt [Zofran Odt] 4 mg PO Q8HR PRN #30 tab 01/20/24 Prochlorperazine [Compazine] 10 mg PO Q6H PRN #30 tab 01/20/24 clonazePAM [KlonoPIN] 0.5 mg PO TID PRN 3 Days #9 tablet 01/20/24 Bacitracin/Polymyx Oint 1 applic TOPICAL BID #22 gm 10/21/24 [Polysporin Oint] clindamycin HCL 300 mg PO QID #20 cap 10/21/24 Allergies Allergy/AdvReac Type Severity Reaction Status Date / Time topiramate [From Topamax] Allergy Anaphylaxis Verified 01/22/24 07:42 cephalexin [From Keflex] AdvReac Nausea & Verified 01/22/24 07:42 Vomiting lamotrigine [From Lamictal] AdvReac lock jaw Verified 01/22/24 07:42 Review of Systems ROS Other: All systems not noted in ROS Statement are negative. <Michelle Mock - Last Filed: 10/21/24 18:24> ROS Other: All systems not noted in ROS Statement are negative. <Terrence Rincon - Last Filed: 10/21/24 23:50> ROS Statement: Those systems with pertinent positive or pertinent negative responses have been documented in the HPI. Past Medical History Past Medical History: Thyroid Disorder Additional Past Medical History / Comment(s): stomach ulcer, back pain, thyroid nodule History of Any Multi-Drug Resistant Organisms: None Reported Past Surgical History: Tonsillectomy, Tubal Ligation Additional Past Surgical History / Comment(s): EGD, booked for thyroid biopsy 07/04/21 Additional Past Anesthesia/Blood Transfusion Reaction / Comment(s): difficult to wake up and elevated heart rate. No previous blood transfusion Past Psychological History: ADD/ADHD, Anxiety, Depression, Panic Disorder, PTSD Smoking Status: Current every day smoker Past Alcohol Use History: Occasional Past Drug Use History: Marijuana - Past Family History Mother Family Medical History: Thyroid Disorder Additional Family Medical History / Comment(s): Hypertension, hyperparathyroidism, posttraumatic stress disorder Father Family Medical History: No Reported History Additional Family Medical History / Comment(s): being evaluated for stroke and possible palpitations <Michelle Mock - Last Filed: 10/21/24 18:24> General Exam <Michelle Mock - Last Filed: 10/21/24 18:24> General appearance: alert, in no apparent distress Head exam: Present: atraumatic, normocephalic, normal inspection Eye exam: Present: normal appearance, PERRL, EOMI. Absent: scleral icterus, conjunctival injection, periorbital swelling ENT exam: Present: normal exam, mucous membranes moist Neck exam: Present: normal inspection. Absent: tenderness, meningismus, lymphadenopathy Respiratory exam: Present: normal lung sounds bilaterally. Absent: respiratory distress, wheezes, rales, rhonchi, stridor Cardiovascular Exam: Present: regular rate, normal rhythm, normal heart sounds. Absent: systolic murmur, diastolic murmur, rubs, gallop, clicks GI/Abdominal exam: Present: soft, normal bowel sounds. Absent: distended, tenderness, guarding, rebound, rigid Extremities exam: Present: full ROM, tenderness (Positive TTP around puncture site at base of right mid palm without obvious foreign body or significant bleeding. 0.5 cm deep laceration noted at mid palm below third digit without significant bleeding or obvious foreign body.), normal capillary refill, other (Patient able to flex 2nd through 5th digits. States she is unable to flex thumb. Neurovascular/sensory intact for all fingers, capillary refill less than 2 seconds. Radial pulse +2.). Absent: pedal edema, joint swelling, calf tenderness Back exam: Present: normal inspection Neurological exam: Present: alert, oriented X3, CN II-XII intact Psychiatric exam: Present: normal affect, normal mood Skin exam: Present: warm, dry, intact, normal color. Absent: rash <Terrence Rincon - Last Filed: 10/21/24 23:50> - General Exam Comments Initial Comments: Visual Physical Exam General: Well-appearing, nontoxic, no acute distress. Head: Normocephalic, atraumatic Eyes: PERRLA, EOMI ENT: Airway patent Chest: Nonlabored breathing Skin: No visual rash, normal skin tone Neuro: Alert and oriented 3 Musculoskeletal: No gross abnormalities (Michelle Mock) Course Vital Signs 10/21/24 10/21/24 18:50 21:28 Temperature 98.8 F 98.3 F Pulse Rate 96 77 Respiratory 16 18 Rate Blood Pressure 121/88 124/84 O2 Sat by Pulse 96 99 Oximetry Procedures - Laceration Laceration #1 Consent Obtained: verbal consent Indication: laceration Site: hand Size (cm): 1 Description: stellate Depth: simple, single layer Anesthetic Used: lidocaine 1% Anesthesia Technique: local infiltration Amount (mls): 1 Pre-repair: wound explored, irrigated extensively Type of Sutures: nylon Size of Sutures: 5-0 Number of Sutures: 2 Technique: simple, interrupted Patient Tolerated Procedure: well, no complications Laceration #2 Consent Obtained: verbal consent Indication: laceration Site: hand Size (cm): 2 Description: linear Depth: simple, single layer Anesthetic Used: lidocaine 1% Anesthesia Technique: local infiltration Amount (mls): 2 Pre-repair: wound explored, irrigated extensively Type of Sutures: nylon Size of Sutures: 5-0 Number of Sutures: 3 Technique: running Patient Tolerated Procedure: well, no complications <Terrence Rincon - Last Filed: 10/21/24 23:50> - Laceration Laceration #2 Additional Comments: Patient able to demonstrate that she can fully flex and extend her 2nd through 5th digits following suturing procedures. Patient able to demonstrate slight flexion of thumb which is improvement from initial presentation and patient was unable to flex thumb at all. (Terrence Rincon) Medical Decision Making <Michelle Mock - Last Filed: 10/21/24 18:24> <Terrence Rincon - Last Filed: 10/21/24 23:50> - Medical Decision Making I completed the quick note portion of this chart signed Michelle Mock PA-C (Michelle Mock) Was pt. sent in by a medical professional or institution (KARLA Dejesus, FAMILY PROGRAM SPECIALIST, urgent care, hospital, or snf...) When possible be specific @ -[No] Did you speak to anyone other than the patient for history (EMS, parent, family, police, friend...)? What history was obtained from this source @ -[No] Did you review nursing and triage notes (agree or disagree)? Why? @ -[I reviewed and agree with nursing and triage notes] Were old charts reviewed (outside hosp., previous admission, EMS record, old EKG, old radiological studies, urgent care reports/EKG's, snf records)? Report findings @ -[No old charts were reviewed] Differential Diagnosis (chest pain, altered mental status, abdominal pain women, abdominal pain men, vaginal bleeding, weakness, fever, dyspnea, syncope, headache, dizziness, GI bleed, back pain, seizure, CVA, palpatations, mental health, musculoskeletal)? @ -Differential Musculoskeletal Muscular strain, contusion, ligament sprain, fracture, arthritis, septic arthritis, bursitis, cellulitis, muscle spasm, nerve compression, DVT, arterial occlusion, herpes zoster, electrolyte abnormality, tumor.... This is not meant to be in all inclusive list EKG interpreted by me (3pts min.). @ -Not done X-rays interpreted by me (1pt min.). @ -[None done] CT interpreted by me (1pt min.). @ -[None done] U/S interpreted by me (1pt. min.). @ -[None done] What testing was considered but not performed or refused? (CT, X-rays, U/S, labs)? Why? @ -[None] What meds were considered but not given or refused? Why? @ -[None] Did you discuss the management of the patient with other professionals (professionals i.e. , PA, FAMILY PROGRAM SPECIALIST, lab, RT, psych nurse, manager social services, crossbar switch adjuster, teacher, business practices officer, case management rn)? Give summary @ -[No] Was smoking cessation discussed for >3mins.? @ -[No] Was critical care preformed (if so, how long)? @ -[No] Were there social determinants of health that impacted care today? How? (Homelessness, low income, unemployed, alcoholism, drug addiction, transportation, low edu. Level, literacy, decrease access to med. care, fci, rehab)? @ -[No] Was there de-escalation of care discussed even if they declined (Discuss DNR or withdrawal of care, Hospice)? DNR status @ -[No] What co-morbidities impacted this encounter? (DM, HTN, Smoking, COPD, CAD, Cancer, CVA, ARF, Chemo, Hep., AIDS, mental health diagnosis, sleep apnea, morbid obesity)? @ -[None] Was patient admitted / discharged? Hospital course, mention meds given and route, prescriptions, significant lab abnormalities, going to OR and other pertinent info. @ -[hospital course] Undiagnosed new problem with uncertain prognosis? @ -[No] Drug Therapy requiring intensive monitoring for toxicity (Heparin, Nitro, Insulin, Cardizem)? @ -[No] Were any procedures done? @ -[No] Diagnosis/symptom? @ -Right palm lacerations, loss of right thumb motor function Acute, or Chronic, or Acute on Chronic? @ -Acute Uncomplicated (without systemic symptoms) or Complicated (systemic symptoms)? @ -Uncomplicated Side effects of treatment? @ -[No] Exacerbation, Progression, or Severe Exacerbation? @ -[No] Poses a threat to life or bodily function? How? (Chest pain, [place], [place], pneumonia, PE, COPD, DKA, ARF, appy, cholecystitis, CVA, Diverticulitis, Homicidal, Suicidal, threat to staff... and all critical care pts) @ -[No] (Terrence Rincon) Disposition <Michelle Mock - Last Filed: 10/21/24 18:24> Is patient prescribed a controlled substance at d/c from ED?: No Time of Disposition: 21:15 <Terrence Rincon - Last Filed: 10/21/24 23:50> Clinical Impression: Laceration, Injury of right thumb Disposition: HOME SELF-CARE Condition: Fair Instructions (If sedation given, give patient instructions): Care For Your Stitches (ED) Additional Instructions: Keep wounds clean with antibacterial soap and water at least twice daily along with dressing change. Follow-up with orthopedics regarding loss of right thumb motor function. Prescriptions: clindamycin HCL 300 mg PO QID #20 cap Bacitracin/Polymyx Oint [Polysporin Oint] 1 applic TOPICAL BID #22 gm Referrals: Aleksander Capone MD [Primary Care Provider] - 1-2 days [facility] [Provider Group] - 1-2 days [facility] [Provider Group] - 1-2 days
--- NOTE | 2024-10-21 19:28 | XR ---
EXAMINATION TYPE: XR hand complete RT DATE OF EXAM: 10/21/2024 7:22 PM COMPARISON: None. CLINICAL INDICATION: Female, 34 years old with history of possible glass to hand, pain TECHNIQUE: 3 view(s) obtained. FINDINGS: No acute fracture or dislocation evident. Soft tissues appear normal. No radiopaque foreign bodies id entified. Follow up exams can be performed 7-10 days from acute trauma for continued pain. IMPRESSION: 1. No acute osseous abnormality right hand [facility] Mely Torres, , 10/21/2024 7:25 PM
[2024-10-21] MEDS: ACETAMINOPHEN TAB 500 MG TAB PO STA (21:10)
[2024-10-21] MEDS: CLINDAMYCIN 150 MG CAP PO STA (21:10)
[2024-10-21] MEDS: DIPH,PERTUS(ACELL)TETVAC-LF 0.5 ML VIAL IM ONE (21:11)
[2024-10-21] MEDS: IBUPROFEN 800 MG TAB PO STA (21:11)
[2024-10-21] MEDS: LIDOCAINE 1% INJ 10MG/ML (20 ML MDV) SQ ONE (21:12)
[2024-10-21 21:29] VITALS: BP 124/84; PULSE 77; RESP 18; TEMP 98.3
== END 2024-10-21 21:27 | disposition home or self-care (01) ==
LOC: EC 18:13
DX: S61.411A Laceration without foreign body of right hand, initial encounter (principal); S69.91XA Unspecified injury of right wrist, hand and finger(s), initial encounter; F17.200 Nicotine dependence, unspecified, uncomplicated; Z88.1 Allergy status to other antibiotic agents; Z88.8 Allergy status to other drugs, medicaments and biological substances; Z23 Encounter for immunization; W13.4XXA Fall from, out of or through window, initial encounter; W26.8XXA Contact with other sharp object(s), not elsewhere classified, initial encounter
CPT/HCPCS: 73130; 90715; 99284; 90471; 12002; J2003